=== PATIENT | female | born 1945 | race Caucasian/White ===

== ENCOUNTER → 2019-10-24 10:28 | Outpatient (CLI) | payer OTHER, SELFPAY ==
--- NOTE | ~2019-10-24 | MR_ITS ---
EXAMINATION: MR lumbar spine wo con DATE: 10/24/2019 11:08 INDICATION: Chronic left-sided low back pain. Left hip pain. TECHNIQUE: Magnetic resonance imaging (MRI) of the lumbar spine was performed without intravenous con trast. Sequences included sagittal T2-weighted FSE, sagittal T2-weighted FS FSE, sagittal T1-weighted FSE, and axial T2-weighted FSE. COMPARISON: Lumbar spine MRI 10/09/2014 FINDINGS: There is 5 degrees dextrocurvature of lumbar spine. Vertebral body heights and intervertebr al disc heights are normal. The distal spinal cord signal intensity is normal. The conus medullaris i s at L1. The following disc levels are specifically discussed: L1-L2: The disc does not extend beyond the endplate margin. There is mild right facet joint osteoarth ritis. There is no neural foraminal stenosis. There is no central canal stenosis. L2-L3: The disc does not extend beyond the endplate margin. There is severe bilateral facet joint ost eoarthritis. There is no neural foraminal stenosis. There is no central canal stenosis. L3-L4: The disc is bulging and has an annular fissure. There is severe bilateral facet joint osteoart hritis. There is mild bilateral neural foraminal stenosis. There is mild central canal stenosis. L4-L5: The disc is bulging and has an annular fissure. There is severe bilateral facet joint osteoart hritis. There is mild bilateral neural foraminal stenosis. There is mild central canal stenosis. L5-S1: There is a right central protrusion. There is moderate right and mild left facet joint osteoar thritis. There is mild right neural foraminal stenosis. There is mild central canal stenosis. IMPRESSION: 1. Mild lumbar spondylosis, stable from 10/09/2014. Reviewed, dictated and finalized at location A. [employer]ORATORY MANAGER
== END ==
PROVIDERS: PCP Internal Medicine
DX: M54.42 Lumbago with sciatica, left side (principal); G89.29 Other chronic pain; M47.816 Spondylosis without myelopathy or radiculopathy, lumbar region
CPT/HCPCS: 72148

== ENCOUNTER → 2019-11-22 10:12 | Outpatient (CLI) | payer OTHER, SELFPAY ==
--- NOTE | ~2019-11-22 | DEXA_ITS ---
Bone Density Report Name: Thalia Rod Age: 74 Sex: Female Ethnicity: White Date of : 1945 Indication: postmenopausal osteoporosis; parental hip fracture; height loss; Referring Provider: JOSE, LAMONTE Study: Bone densitometry was performed. Exam Date: November 22, 2019 Accession number: [id number] Bone Density: Region BMD T-score Z-score Classification AP Spine (L1-L4) 0.752 -2.7 -0.4 Osteoporosis Femoral Neck (Left) 0.680 -1.5 0.4 Osteopenia Total Hip (Left) 0.709 -1.9 -0.3 Osteopenia Femoral Neck (Right) 0.665 -1.7 0.3 Osteopenia Total Hip (Right) 0.709 -1.9 -0.3 Osteopenia Total Hip Mean 0.709 -1.9 -0.3 Osteopenia World Health Organization criteria for BMD impression classify patients as: Normal (T-score at or above -1.0), Osteopenia (T-score between -1.0 and -2.5), or Osteoporosis (T-score at or below -2.5). 10-year Fracture Risk: FRAX not reported because: Some T-score for Spine Total or Hip Total or Femoral Neck at or below -2.5 Previous Exams: Region Exam Age BMD T-score BMD Change BMD Change Date g/cm2 vs Baseline vs Previous AP Spine(L1-L4) 11/22/2019 74 0.752 -2.7 0.019 0.003 05/27/2017 72 0.748 -2.7 0.016 -0.011 03/28/2015 69 0.759 -2.6 0.026* -0.007 02/16/2013 67 0.766 -2.6 0.033* -0.012 01/16/2011 65 0.778 -2.4 0.045* 0.045* 12/09/2005 60 0.733 -2.9 Total Hip(Left) 11/22/2019 74 0.709 -1.9 0.028 -0.003 05/27/2017 72 0.712 -1.9 0.031 0.013 03/28/2015 69 0.699 -2.0 0.018 -0.032* 02/16/2013 67 0.732 -1.7 0.051 0.022 01/16/2011 65 0.710 -1.9 0.029 0.029 12/09/2005 60 0.681 -2.1 Total Hip(Right) 11/22/2019 74 0.709 -1.9 0.010 0.036* 05/27/2017 72 0.674 -2.2 -0.025 -0.036* 03/28/2015 69 0.710 -1.9 0.011 0.006 02/16/2013 67 0.704 -2.0 0.005 -0.014 01/16/2011 65 0.718 -1.8 0.019 0.019 12/09/2005 60 0.699 -2.0 *Denotes significance at 95% confidence level, LSC for AP Spine = 0.022 g/cm2, LSC for Total Hip = 0.027 g/cm2 Clinical Information Provided by Patient: Parent has had a hip fracture Has used the following medications: Fosamax (i.e. alendronate), Vitamin D, Calcium Patient maximum height was 64 Menopause Age: 47
== END ==
PROVIDERS: PCP Internal Medicine; Visit Provider Internal Medicine
DX: Z78.0 Asymptomatic menopausal state (principal); M85.852 Other specified disorders of bone density and structure, left thigh; M85.851 Other specified disorders of bone density and structure, right thigh; M81.0 Age-related osteoporosis without current pathological fracture
CPT/HCPCS: 77080

== ENCOUNTER → 2019-11-27 14:47 | Outpatient (CLI) | payer OTHER, SELFPAY ==
--- NOTE | ~2019-11-27 | MM_ITS ---
EXAMINATION: MM screening guilherme BI w andrew HISTORY: Screening mammogram TECHNIQUE: Craniocaudal and mediolateral oblique 3-D tomosynthesis images were obtained and synthetic 2-D images were generated. CAD analysis was submitted and interpreted. COMPARISON: 09/30/2016, 03/28/2015 bilateral digital screening mammogram examinations BREAST PARENCHYMAL COMPOSITION: There are scattered areas of fibroglandular density. FINDINGS: Stable fibroglandular asymmetry. There is no evidence of suspicious mass, calcification, or architectural distortion to suggest malignancy in either breast. There has been no suspicious interv al change. IMPRESSION: 1. No mammographic evidence of malignancy. 2. Recommend routine screening mammography in one year. BI-RADS Category 2: Benign finding(s). Reviewed, dictated and finalized at location A. [employer] SYSTEMS SPECIALIST
== END ==
PROVIDERS: PCP Internal Medicine; Visit Provider Internal Medicine
DX: Z12.31 Encounter for screening mammogram for malignant neoplasm of breast (principal)
CPT/HCPCS: 77063; 77067

== ENCOUNTER → 2020-07-29 08:44 | Outpatient (CLI) | payer OTHER, SELFPAY ==
--- NOTE | ~2020-07-29 | MR_ITS ---
EXAMINATION: MR shoulder RT wo con DATE: 07/29/2020 09:30 INDICATION: Right shoulder pain and weakness TECHNIQUE: Magnetic resonance imaging (MRI) of the right shoulder was performed without intravenous c ontrast. Sequences included axial PD-weighted FS FSE, coronal oblique PD-weighted FS FSE, coronal obl ique T2-weighted FS FSE, sagittal PD-weighted FS FSE, and sagittal T1-weighted SE. COMPARISON: None. FINDINGS: Coracoacromial arch: The acromion undersurface is flat in morphology (type I) with lateral downsloping. Small anterior sub acromial spurs at the insertion of the normal coracoacromial ligament. Moderate acromioclavicular ost eoarthritis. Rotator cuff: There is marked attenuation of the supraspinatus and anterior infraspinatus tendons resulting from pa rtial-thickness articular sided tear with medial retraction of the torn articular side of the tendon to near the level of the rim of the glenoid. No clearly defined full-thickness tear defect appreciate d although given the thinning of the distal tendon could not exclude a small full-thickness component to the tear. The teres minor and subscapularis tendons are normal. There is a concave posterior ceph alad margin to the subscapularis muscle belly which could be related to either medial retraction of p ortions of the muscle belly or atrophy but without significant fatty infiltration. Remaining musculat ure of the shoulder girdle appears relatively preserved. Biceps tendon, glenoid labrum and glenohumeral cartilage: Long head of the biceps tendon is normal. There is degenerative tearing of the 3:00-6:00 position of the anteroinferior glenoid labrum which appears thickened with macerated appearance and with erosive changes at the underlying rim of the glenoid at the 4:00 position. There is partial thickness cartila ge loss at the glenoid with central to cephalad predominance but with smooth chondral surface. Fluid: Physiologic amount of fluid in the glenohumeral joint and biceps tendon sheath. No loose osteochondra l bodies. Small amount of fluid in the subacromial/subdeltoid bursa which could be related to mild bu rsitis or decompression of glenohumeral joint fluid through the full-thickness perforation of the mar kedly thinned supraspinatus and infraspinatus tendons. Bones: No fracture or pathologic marrow replacing process. Mild cystic change at the posterior aspect of the greater tuberosity. IMPRESSION: 1. Moderate to severe partial thickness articular sided tear of the supraspinatus and anterior infras pinatus tendons. No measurable full-thickness tear defect identified however given the marked thinnin g of the tendon, small full-thickness perforations cannot be excluded. 2. Mild glenohumeral osteoarthritis with prominent degenerative tearing of the anteroinferior labrum. 3. Moderate acromioclavicular osteoarthritis. Reviewed, dictated and finalized at location A. KTOP PAVER OPERATOR IMPRESSION: 1. Moderate to severe partial thickness articular sided tear of the supraspinat us and anterior infraspinatus tendons. No measurable full-thickness tear defect identified however given the marked thinning of the tendon, small full-thickne ss perforations cannot be excluded. 2. Mild glenohumeral osteoarthritis with prominent degenerative tearing of the anteroinferior labrum. 3. Moderate acromioclavicular osteoarthritis.
== END ==
PROVIDERS: PCP Internal Medicine; Visit Provider Orthopaedic Surgery
DX: M19.011 Primary osteoarthritis, right shoulder (principal)
CPT/HCPCS: 73221

== ENCOUNTER 2020-10-04 11:00 | Outpatient (CLI) | payer OTHER, SELFPAY ==
[2020-10-04 17:23] LABS: SARS-CoV-2 RNA PCR Negative
== END 2020-10-04 11:01 ==
PROVIDERS: PCP Internal Medicine; Visit Provider Orthopaedic Surgery
DX: Z01.812 Encounter for preprocedural laboratory examination (principal); Z20.822 Contact with and (suspected) exposure to COVID-19
CPT/HCPCS: C9803; U0003

== ENCOUNTER 2020-10-04 12:59 | Outpatient (CLI) | payer OTHER, SELFPAY ==
--- NOTE | ~2020-10-04 | XR_ITS ---
EXAMINATION: XR chest 2V DATE: 10/04/2020 14:27 INDICATION: Hypothyroidism. Preop. TECHNIQUE: Frontal and lateral views of the chest were obtained. COMPARISON: Chest 2 views 10/02/2014 FINDINGS: There is no pneumonia, pleural effusion, or pneumothorax. Cardiomegaly is noted. IMPRESSION: 1. Cardiomegaly. Reviewed, dictated and finalized at location A. [employer] TICKET SELLING IMPRESSION: 1. Cardiomegaly.
== END 2020-10-04 13:00 | disposition home or self-care (01) ==
LOC: ANHSURGERY 13:01
PROVIDERS: PCP Internal Medicine; Visit Provider Orthopaedic Surgery
DX: S92.309A Fracture of unspecified metatarsal bone(s), unspecified foot, initial encounter for closed fracture (principal); Z01.818 Encounter for other preprocedural examination; I51.7 Cardiomegaly
CPT/HCPCS: 36415; 71046; 82306

== ENCOUNTER 2020-10-07 01:46 | Day surgery (SDC) | payer OTHER, SELFPAY ==
--- NOTE | 2020-10-04 11:13 | PM.IMHP ---
H&P: HPI History of Present Illness Date/Time: 10/04/20 11:13 Chief Complaint: Right 5th metatarsal Og fracture with prodrome all symptoms Narrative: Thalia Rod is a 75 year old female [facility] Family History Family History (Updated 05/24/14 @ 07:13 by DOCTOR UNKNOWN) Father Patient's father is Mother Family history of heart disease in male family member before age 55 Sibling Family history of heart disease in male family member before age 55 Social History Social History Smoking status: Never smoker Alcohol intake: never Meds Home Medications and Allergies Allergies Allergy/AdvReac Type Severity Reaction Status Date / Time Unable to Assess Allergy Mild Unverified 06/13/09 11:59 Sulfa (Sulfonamide Allergy Unknown Verified 10/07/15 14:08 Antibiotics) Assessment and Plan Additional Plan patient is a 75-year-old female who has had several months of intermittent pain in lateral forefoot of the right foot and then on 10/02/2020 she was simply descending some steps when she heard a pop in the lateral right midfoot and then a surge of severe pain. She had x-rays obtained which demonstrate completion of a chronic appearing Og fracture that was a stress fracture involving the lateral 1/2 of the proximal 5th metatarsal shaft of the right foot transversely. She presents for screw stabilization of this fracture. Her past medical history is significant for using acting ill off and on for the last 10 years for osteoporosis. She will be stopping that at this time. A bone growth stimulator will be ordered for her. She will also have her naproxen and Mobic. . 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 Her other medications include levothyroxine seen levo cetirizine clobetasol cream Viola stasis eyedrops. History of osteoporosis. History of chronic large rotator cuff tear right shoulder deemed irrepairable. She has no history of heart or lung disease. She is a lifelong nonsmoker. History of allergy to sulfa causing rash. On exam today she is a pleasant female in no acute distress. She is alert and oriented. She rates her pain at 5/10. She is 5 ft 1 in in height 112 lb. She has a 2+ dorsalis pedis pulse palpable in the right foot. She does report some decrease in sensation of her toes bilaterally which is been present for years. The skin is intact in the right foot. She has severe tenderness over the mid 5th metatarsal shaft the right foot and no where else in the foot or ankle. Heart and lung auscultation will be documented on day of surgery. She is being sent for EKG and standard pre-surgical laboratory work which is not available yet. Patient has a stress fracture right 5th metatarsal shaft with 3 months of prodrome will symptoms followed by atraumatic completion of the fracture. Screw stabilization has been recommended and we will plan to use the Brian as this Caitlyn's fracture screw set. Risks of surgery were discussed with her D in detail she understands wish to proceed.
[2020-10-04 13:44] VITALS: BP 147/74; PULSE 80; RESP 16; TEMP 36.9; O2SAT 97
[2020-10-07] VITALS (8 sets, daily range): BP systolic 131–154; BP diastolic 48–74; PULSE 62–81; RESP 8–20; TEMP 36.6–36.8; O2SAT 98–100
--- NOTE | ~2020-10-07 | XR_ITS ---
EXAMINATION: XR surgery orthopedic EXAM DATE: 10/07/2020 09:20 INDICATION: ORIF right foot. TECHNIQUE: Fluoroscopy used during XR surgery orthopedic performed by Dr. Heladio Fox MD. The DAP for this procedure was 0.09 mGym2. FINDINGS: There is a surgical screw bridging a right 5th metatarsal shaft fracture proximally, Og type fracture. Hardware, bone fragment are in expected position. Correlate with procedure note. IMPRESSION: Fluoroscopy used during right Og fracture ORIF. Reviewed, dictated and finalized at location B. [employer] MARKETING
[2020-10-07] MEDS: ACETAMINOPHEN 500 MG TABLET 1000 MG PO (06:25)
[2020-10-07] MEDS: LACTATED RINGERS 1,000 ML 30 ML IV CONT ×3 (06:45→09:28)
[2020-10-07] MEDS: KETOROLAC 15 MG/ML VIAL (*BKC) IV PUSH (06:52)
--- NOTE | 2020-10-07 07:22 | WPDHPUPDATE1 ---
History and Physical Update Update Date/Time: 10/07/20 07:22 History and Physical has been reviewed, including an updated exam of the patient. There are NO changes in the patient's condition. Risks, benefits, and alternatives have been discussed and questions answered. Patient agrees to proceed with procedure.
--- NOTE | 2020-10-07 07:32 | P.PNAN_ITS ---
Anes - Initial Pre Proc Eval Procedure: Operation Date: 10/07/20 07:30 Proposed Procedures p Open Reduction Internal Fixation Right Fifth Metatarsal Love Fracture with Cannulated Screw - Heladio Fox MD Date/Time: 10/07/20 07:32 Surgeon: Heladio Fox MD Pre Op Diagnosis: right 5th metarsal love fx Patient Data Age: 75 Gender: F Height: 5 ft 3 in Weight: 49.7 kg Last Vital Signs Temp 36.8 C 10/07/20 06:17 Pulse 81 10/07/20 06:17 Resp 20 10/07/20 06:17 BP 148/70 H 10/07/20 06:17 Pulse Ox 100 10/07/20 06:17 Allergies Allergy/AdvReac Type Severity Reaction Status Date / Time Sulfa (Sulfonamide AdvReac Mild Rash Verified 10/07/20 06:22 Antibiotics) Home Medications Medication Instructions Recorded Confirmed Type Tylenol Arthritis 650 mg PO HS 10/04/20 10/07/20 History acetaminophen [Tylenol Extra 500 mg PO QAM PRN 10/04/20 10/07/20 History Strength] calcium carbonate [Caltrate 600] 600 mg PO DAILY 10/04/20 10/04/20 History cyclosporine [Restasis] 1 drp OPHTHALMIC (EYE) Q12H 10/04/20 10/04/20 History hydroxychloroquine 200 mg PO QAM 10/04/20 10/07/20 History levocetirizine 5 mg PO HS 10/04/20 10/07/20 History levothyroxine 50 mcg PO QAM 10/04/20 10/07/20 History meloxicam 15 mg PO DAILY 10/04/20 10/07/20 History multivitamin [Daily Multiple] 1 tablet PO DAILY 10/04/20 10/07/20 History naproxen 500 mg PO BID 10/04/20 10/07/20 History Patient hx anesthesia problems: none Family hx anesthesia problems: none PMFSH Past Medical History Medical History (Updated 10/07/20 @ 07:33 by Mitch Lara MD) Hypothyroidism Surgical History Surgical History (Updated 10/07/20 @ 07:33 by Mitch Lara MD) Hx of tonsillectomy Family History Family History Father Patient's father is Mother Family history of heart disease in male family member before age 55 Sibling Family history of heart disease in male family member before age 55 Social History Social History Smoking status: Never smoker Alcohol intake: never Substance use: never Living arrangements: with family Additional living arrangements comments: Spiritual care concerns: No Anes - Eval Final PreProcedure Day of Procedure 10/07/20 07:32 Patient weight: normal Heart: regular rate and rhythm Lungs: clear to auscultation Airway: Mallampati scale class II Neurological: alert and oriented Last oral intake: >/= 8 hours ASA classification: II Emergent: no Anesthetic plan: proceed Anesthesia type and monitoring: general LMA and standard monitoring Informed Consent: The patient's anesthetic plan of GA with LMA and propofol infusion and its attendant risks and benefits were discussed at length by me and Sharmin Gonzalez with the patient. Questions were solicited and answers provided to t he satisfaction of the patient.
[2020-10-07] MEDS: ceFAZolin 2 GM/D5W 50 ML 2 GM/50 ML BAG IVPB (07:40)
[2020-10-07] MEDS: BUPIVACAINE HCL 0.5% PF 30 ML VIAL INFILTRATE (09:03)
--- NOTE | 2020-10-07 09:54 | P.OP_ITS ---
Procedure Note - Detailed Date of procedure: 10/07/20 Pre-op diagnosis: right 5th metarsal love fx Atypical right 5th metatarsal Love stress fracture. Osteoporosis. Post-op diagnosis: same Procedure performed: Open reduction internal fixation with ASNIS 6.0 cannulated screw with washer right 5th metatarsal fracture Description of procedure: Patient was brought to the operating room and general anesthesia was administered. She received weight based vancomycin 2 g of Ancef preoperatively. The right foot was scrubbed with the Ramses prep cloth and then prepped with ChloraPrep and draped usual fashion. Tourniquet was not used during the procedure. A 1/2 cm longitudinal incision was made proximal to the 5th metatarsal and a guide lucia inserted at the appropriate alignment to center it within the intramedullary canal of the proximal 2/3 of the the metatarsal. I was able to inserted by hand as her osteoporosis was significant period a 5.0 mm x 42 mm solid screw proved a struggle to get the entrance hole and we decided to use the cannulated version and this was inserted and I noted that the head of the 5 mm screw countersunk into the 5th metatarsal styloid quite easily the screw bottoming out the anterior cortex distally. I felt we could go up to a size 6 and we inserted a 6 mm by 40 mm screw cannulated with a washer and this filled the canal nicely but I thought it ended up being a little bit short due to the fact that the washer prevented any countersinking and we removed this and went up to a size 44 which reached the point where the canal was starting to narrowing obtained excellent purchase and excellent interfragmentary compression at the fracture site with a washer in place. The wound was irrigated and closed with 4 nylon suture and a soft bulky dressing applied a posterior splint a pplied. She was transferred postop recovery room in stable condition. No known complications. Implants: ASNIS cannulated 6 mm Love fracture screw and washer Anesthesia: GLMA Surgeon: Heladio Fox MD Pile Driver Operator: Clint Louise Estimated blood loss (mL): 10 Tourniquet time (min): 0 Drains: No Packing: No Pathology: none sent Complications: No immediate complications Condition: stable Disposition: PACU
--- NOTE | 2020-10-07 09:55 | SUR.PHASEI ---
0972; NAMITA WEST CHANGED IVF BAG 2 WHICH HAD 500 LEFT TO COUNT. WASTED. SHE HUNG A NEW BAG OF LR.
--- NOTE | 2020-10-07 10:12 | SUR.PHASEI ---
PT AWAKE AND ALERT. STATES MILD PAIN TO FOOT. DOES NOT WANT ANY PAIN MEDICINE AT THIS TIME.
--- NOTE | 2020-10-07 11:40 | SUR.OPER ---
Late Entry/right foot screw 5th metatarsal [place] 6.0x 44mm cannulated screw ([id number]), washer 6.0x10mm ([id number])
== END 2020-10-07 11:21 | disposition home or self-care (01) ==
PROVIDERS: PCP Internal Medicine; Visit Provider Orthopaedic Surgery
PROC: (CPT 28485; principal; 2020-10-07 07:30)
DX: M84.374A Stress fracture, right foot, initial encounter for fracture (principal); M81.0 Age-related osteoporosis without current pathological fracture; E03.9 Hypothyroidism, unspecified
CPT/HCPCS: 28485; 36415; 71046; 82306; A9270; C9803; J0690; J1100; J1200; J1885; J2405; J2704; J3010; J3370; J7120; U0003

== ENCOUNTER 2021-02-19 14:15 | Outpatient (RCR) | payer OTHER, SELFPAY ==
--- NOTE | 2021-02-07 16:29 | PTOPEVAL ---
PHYSICAL THERAPY EVALUATION AND PLAN OF CARE Thank you for referring Thalia Rod to [facility].? The patient is scheduled to be seen for therapy?2x/week for 4weeks. Please review, sign, date and return this plan of care DIVINA. I agree with and certify that the following plan of care is medically necessary. Referring Physician Date Attending Provider: Heladio Fox MD Evaluation Outpatient Past Medical History Musculoskeletal History Hx Fractures Yes: FRACTURE IN FOOT IN PAST Hx Osteoporosis Yes Hx Other Musculoskeletal Disorders Yes: RT 5TH METATARSAL DESOUZA FRACTURE, RT SHOULDER ROTATOR TEAR CURRENTLY Endocrine History Hx Hypothyroidism Yes HEENT History Hx Tonsillectomy Yes: CHILD Hx Other HEENT Disorders Yes: SJOGREN'S- RESTASIS Integumentary History Hx Other Skin Disorders Yes: SJOGREN'S RASH PERIODICALLY Reproductive History Hx Post Menopausal Yes Diagnosis right 5th metatarsal fracture s/p ORIF Onset 09/2020 Subjective Information Thalia is here today 5 months s Query Text:As Reported By Patient/ /p right 5th metatarsal fx Family with ORIF. She was in a stabilizing boot since September 2020 and on 01/27/21 she was able to switch to a hard soled shoe. She was using a wheelchair until that time also. She is now using a rollator walker. Reports that she has a burning across the top of the foot, but not a lot of pain. States that she tried to do some walking without the walker and home and got really tired. Self Report Pain Assessment Right Foot/Feet Reported Pain Level 1 Pain Description Burning Pain Frequency Chronic Lowest Pain Intensity 0 Other Pain Aggravating Factors possibly sheets touching the foot and possibly the sheets bending the foot. Pain Behaviors None Interventions Used Interventions Used By Clinicians Exercise Lower Extremity Range of Motion General Lower Extremity Range of Motion Reason Not Measured WFL/Left,WFL/Right Gross Lower Extremity Range of Motion precautions to keep toes Comments neutral (no flexion or extension of toes); precaution
--- NOTE | 2021-02-10 11:43 | PCPTNOTE ---
Patient did not show up for scheduled appointment this date.
--- NOTE | 2021-02-28 15:23 | PCPTNOTE ---
Patient did not show up for scheduled appointment this date. Called and left voicemail about missed appointment, reminded Pt of upcoming appointment on 03/04/2021 @ 15:00.
--- NOTE | 2021-03-03 08:16 | PCPTNOTE ---
PHYSICAL THERAPY DISCHARGE NOTE Attending Provider: Heladio Fox MD Patient:Thalia Rdo Date of :1945 Thalia called to cancel her last appointments. I spoke with her about her current condition and she states that she saw the doctor and she is allowed to walk without restriction and he instructed her to continue her exercises at home. We will discharge her from out care at this time. We would be happy to work with her in the future if needed. Thank you for referring Thalia to [facility]. Please review, sign, date and return this discharge summary DIVINA. I have been updated about the patient's current status and I agree with discharge from the above service at this time. Referring Physician Date
== END 2021-03-03 10:19 | disposition home or self-care (01) ==
LOC: ANHPT 14:15
PROVIDERS: PCP Internal Medicine; Visit Provider Orthopaedic Surgery
DX: Z47.89 Encounter for other orthopedic aftercare (principal)
CPT/HCPCS: 97110; 97161

== ENCOUNTER 2022-02-17 13:43 | Outpatient (CLI) | payer OTHER, SELFPAY ==
--- NOTE | 2022-02-17 14:37 | ECG_ITS ---
Measurements Intervals [place] Rate: 69 P: 77 GA: 150 QRS: -1 QRSD: 94 T: 19 QT: 377 QTc: 405 Interpretive Statements SINUS RHYTHM BASELINE ARTIFACT- I, II, III, AVR, AVL, AVF NORMAL ECG Electronically Signed On 02-17-2022 17:22:15 CDT by Ruiz Browning D.O.
[2022-02-17 15:09] LABS: Basophils Percent Auto 0.6 % (0.2-1.2); Eosinophils Absolute Auto 0.2 K/mm3 (0-0.3); Eosinophils Percent Auto 2.8 % (0-4.4); Hematocrit 36.1 % (37.0-47.0); Hemoglobin 11.9 g/dL (12.0-15.0); Immature Granulocyte Absolute 0.02 K/mm3 (0.00-0.031); Immature Granulocyte Percent A 0.3 % (0-0.5); Lymphocytes Absolute Auto 1.79 K/mm3 (0.9-3.2); Lymphocytes Percent Auto 27.4 % (18.3-44.2); Mean Corpuscular Hemoglobin 31.2 pg (26-34); Mean Corpuscular Volume 94.8 fl (80-100); Mean Platelet Volume 10.9 fl (7.4-10.4); Monocytes Absolute Auto 0.5 K/mm3 (0.1-0.6); Neutrophils Percent Auto 60.9 % (45.5-73.1); Platelet Count Result 262 k/mm3 (150-375); Red Blood Count 3.81 M/mm3 (4.2-5.4); Red Cell Distribution Width 12.7 % (11.5-14.5); White Blood Count 6.5 K/mm3 (4.5-10.0)
[2022-02-17 15:18] LABS: Albumin Level 4.5 g/dL (3.5-5.1); Anion Gap 8 mmol/L (8-16); Blood Urea Nitrogen 20 mg/dL (7-17); Calcium 9.3 mg/dL (8.4-10.2); Carbon Dioxide 27 mmol/L (22-30); Chloride 101 mmol/L (98-107); Estimated Glomerular Filt Rate > 60; Glucose 98 mg/dL (65-110); Sodium 136 mmol/L (137-145)
[2022-02-17 15:22] LABS: Urine Cotinine NEGATIVE
[2022-02-17 15:24] LABS: Hemoglobin A1C 5.2 % (<5.7)
== END 2022-02-17 13:44 | disposition home or self-care (01) ==
LOC: ANHSURGERY 13:47
PROVIDERS: PCP Internal Medicine; Visit Provider Orthopaedic Surgery
DX: Z01.818 Encounter for other preprocedural examination (principal); M17.11 Unilateral primary osteoarthritis, right knee
CPT/HCPCS: 80048; 80307; 82040; 83036; 85025; 87070; 93005

== ENCOUNTER 2022-03-05 15:47 | Observation (INO) | payer OTHER, SELFPAY ==
--- NOTE | 2022-02-17 13:46 | PC.NURSE ---
Report to the Outpatient Waiting Room, entrance under the green pavilion located off [facility], at time _1000_ on date _03/04/22_. OR Time: _1200_. - You and your visitor will be asked a series of questions to screen for COVID 19 for your protection. - Only one visitor is allowed at this time. - The patient visitor is requested to leave or wait in car when not with patient. - A mask is required within the hospital. VISITING HOURS 10AM-8PM Patients may have clear liquids (water, carbonated beverages, clear teas, apple juice) until 3 hours prior to surgery (0900 AM) with a maximum of 20 ounces. - No food from midnight until time of surgery Take the following medications with a SIP of water the morning of surgery: _LEVOTHYROXINE, RESTASIS, TYLENOL IF NEEDED_ Medications to discontinue per DR. SOLOMON - (PER PT) - NAPROXEN AND VITAMINS & SUPPLEMENTS 1 WEEK PRIOR TO SURGERY, Date to take last dose 02/24/22_ Please no make-up, nail liberian, hairspray, perfume, deodorant, or body powder the day of surgery. No jewelry (including any body piercings) or valuables the day of surgery, leave them at home. Please take a shower or bath the night before, or the morning of, surgery with an antibacterial soap. Wear comfortable, loose fitting clothing. - Jewelry must be removed prior to entering the operating room. Rings and piercings that are not removed may be cut off. - The hospital will not accept responsibility for valuables. - Please leave all valuables, including medications, at home the day of surgery. If you are going home after surgery, a licensed stacker driver must drive you home. - NO public transportation without another adult. - We recommend that an adult stay with you for 24 hours following discharge. - We also recommend that you do not drive, make important decision, drink alcoholic beverages, or take any drugs that were not prescribed by your health care provider for at least 24 hours after your discharge time. Follow any additional instructions given to you from DR. SOLOMON -- TOTAL JOINT CLASS 02/25/22 @ [address] [place] [address], USE MAIN ENTRANCE, LOWER LEVEL - EDUCATION DEPT. If you or anyone in your household have experienced Covid symptoms in the past week, please notify your surgeon or the nurse liaison at the phone number below for possible testing. Instructions given to ____PT and asked if any additional questions and then verbalized understanding. Patient advised to call surgeon office or pre surgery nurse liaison [phone] if any additional questions.
[2022-02-17 14:11] VITALS: BP 164/68; PULSE 78; RESP 18; TEMP 36.5; O2SAT 100; BMI 20.7
--- NOTE | 2022-03-03 13:52 | WPDANESEPPF ---
Anes - Initial Pre Proc Eval Procedure: Operation Date: 03/04/22 12:00 Proposed Procedures p Right Total Knee Arthroplasty - Heladio Fox MD Date/Time: 03/03/22 13:52 Surgeon: Heladio Fox MD Pre Op Diagnosis: OA right knee (Grade III Valgus) Patient Data Age: 76 Gender: F Height: 1.56 m Weight: 50.5 kg Last Vital Signs Temp 36.5 C 02/17/22 14:11 Pulse 78 02/17/22 14:11 Resp 18 02/17/22 14:11 BP 164/68 H 02/17/22 14:11 Pulse Ox 100 02/17/22 14:11 O2 Del Method Room Air 02/17/22 14:11 Allergies Allergy/AdvReac Type Severity Reaction Status Date / Time Sulfa (Sulfonamide AdvReac Mild Rash Verified 02/17/22 14:01 Antibiotics) Home Medications Medication Instructions Recorded Confirmed Type calcium carbonate 600 mg calcium 600 mg PO DAILY 10/04/20 02/17/22 History (1,500 mg) tablet cyclosporine 0.05 % eye drops in a 1 drp ophthalmic (eye) Q12H 10/04/20 02/17/22 History dropperette (Restasis) hydroxychloroquine 200 mg tablet 200 mg PO QAM 10/04/20 02/17/22 History levocetirizine 5 mg tablet 5 mg PO HS 10/04/20 02/17/22 History levothyroxine 50 mcg tablet 50 mcg PO QAM 10/04/20 02/17/22 History multivitamin (Daily Multiple 1 tablet PO DAILY 10/04/20 02/17/22 History tablet) acetaminophen 325 mg capsule 650 mg PO Q6H PRN pain #90 caps 10/07/20 02/17/22 Rx sennosides 8.6 mg-docusate sodium 2 tab-cap PO BID PRN constipation 10/07/20 02/17/22 Rx 50 mg capsule (Senna Plus) #120 caps ascorbic acid (vitamin C) 500 mg 500 mg PO DAILY 02/17/22 02/17/22 History tablet (Vitamin C) cholecalciferol (vitamin D3) 1,250 2,500 mcg PO DAILY 02/17/22 02/17/22 History mcg (50,000 unit) capsule coenzyme Q10 100 mg capsule 100 mg PO DAILY 02/17/22 02/17/22 History (CoQ-10) glucosamine sulfate 500 mg tablet 1,500 mg PO DAILY 02/17/22 02/17/22 History (Glucosamine) lutein 6 mg tablet 6 mg PO DAILY 02/17/22 02/17/22 History naproxen 500 mg tablet 500 mg PO BID PRN Pain 02/17/22 02/17/22 History vitamin B complex 1 tablet PO DAILY 02/17/22 02/17/22 History vitamin E 400 unit capsule 400 unit PO DAILY 02/17/22 02/17/22 History ECG: Date of Service: 02/17/22 Procedure(s): CA 12 lead EKG Accession Number(s): [id number] cc: ~ ? Measurements Intervals? [place]? Rate: ? 69 ? P:? 77 CO: ? 150? QRS:? -1 QRSD: ? 94 ? T:? 19 QT: ? 377? QTc:? 405? Interpretive Statements SINUS RHYTHM BASELINE ARTIFACT- I, II, III, AVR, AVL, AVF NORMAL ECG Electronically Signed On 02-17-2022 17:22:15 CDT by Ruiz Browning D.O. Patient hx anesthesia problems: none Family hx anesthesia problems: none Results Review: All pre-operative results and documents have been reviewed as part of the pre-operative evaluation. [facility] Past Medical History Medical History Acquired hypothyroidism Elevated LDL cholesterol level Hypothyroidism Lumbar radiculopathy, right Lupus erythematosus overlap syndrome Osteoporosis Seronegative rheumatoid arthritis Sjogrens syndrome Surgical History Surgical History Hx of tonsillectomy Family History Family History Father Patient's father is Mother Family history of heart disease in male family member before age 55 Sibling Family history of heart disease in male family member before age 55 Social History Social History Smoking status: Never smoker Second hand tobacco smoke exposure: No Additional smoking assessment comments: PT DENIES ALL FORMS
[2022-03-04] VITALS (14 sets, daily range): BP systolic 119–170; BP diastolic 57–89; PULSE 72–99; RESP 12–25; TEMP 36.4–36.9; O2SAT 97–100
--- NOTE | 2022-03-04 08:29 | PM.IMHP ---
H&P: HPI History of Present Illness Date/Time: 03/04/22 08:29 Chief Complaint: Right knee DJD Narrative: 76-year-old female patient Dr. Churchill who presents today for right total knee arthroplasty. She has been having pain in this knee for years. She has severe lateral compartment osteoarthritis with a rather severe valgus deformity. She has been on anti-inflammatories without improvement of her symptoms. She has symptoms and pain on a daily basis. She is fairly miserable. She feels this point she is ready to proceed with total knee arthroplasty rather continue nonsurgical treatment. [facility] Past Medical History Medical History Acquired hypothyroidism Elevated LDL cholesterol level Hypothyroidism Lumbar radiculopathy, right Lupus erythematosus overlap syndrome Osteoporosis Seronegative rheumatoid arthritis Sjogrens syndrome Surgical History Surgical History Hx of tonsillectomy Family History Family History Father Patient's father is Mother Family history of heart disease in male family member before age 55 Sibling Family history of heart disease in male family member before age 55 Social History Social History Smoking status: Never smoker Second hand tobacco smoke exposure: No Additional smoking assessment comments: PT DENIES ALL FORMS OF TOBACCO USE Alcohol intake: never Substance use: never Substance use type: does not use Living arrangements: with family Additional living arrangements comments: Spiritual care concerns: No Meds Home Medications and Allergies Home Medications Medication Instructions Recorded Confirmed Type calcium carbonate 600 mg calcium 600 mg PO DAILY 10/04/20 03/04/22 History (1,500 mg) tablet cyclosporine 0.05 % eye drops in a 1 drp ophthalmic (eye) Q12H 10/04/20 03/04/22 History dropperette (Restasis) hydroxychloroquine 200 mg tablet 200 mg PO QAM 10/04/20 03/04/22 History levocetirizine 5 mg tablet 5 mg PO HS 10/04/20 03/04/22 History levothyroxine 50 mcg tablet 50 mcg PO QAM 10/04/20 03/04/22 History multivitamin (Daily Multiple 1 tablet PO DAILY 10/04/20 03/04/22 History tablet) acetaminophen 325 mg capsule 650 mg PO Q6H PRN pain #90 caps 10/07/20 03/04/22 Rx sennosides 8.6 mg-docusate sodium 2 tab-cap PO BID PRN constipation 10/07/20 02/17/22 Rx 50 mg capsule (Senna Plus) #120 caps ascorbic acid (vitamin C) 500 mg 500 mg PO DAILY 02/17/22 03/04/22 History tablet (Vitamin C) cholecalciferol (vitamin D3) 1,250 2,500 mcg PO DAILY 02/17/22 03/04/22 History mcg (50,000 unit) capsule coenzyme Q10 100 mg capsule 100 mg PO DAILY 02/17/22 03/04/22 History (CoQ-10) glucosamine sulfate 500 mg tablet 1,500 mg PO DAILY 02/17/22 03/04/22 History (Glucosamine) lutein 6 mg tablet 6 mg PO DAILY 02/17/22 03/04/22 History naproxen 500 mg tablet 500 mg PO BID PRN Pain 02/17/22 03/04/22 History vitamin B complex 1 tablet PO DAILY 02/17/22 03/04/22 History vitamin E 400 unit capsule 400 unit PO DAILY 02/17/22 03/04/22 History Allergies Allergy/AdvReac Type Severity Reaction Status Date / Time Sulfa (Sulfonamide AdvReac Mild Rash Verified 03/04/22 11:37 Antibiotics) Exam Narrative: 76-year-old female alert pleasant. She is 5 ft 1 and 112 lb. Right knee range of motion is from 0-125 degrees. She has an obvious valgus alignment. Positive Mandy's. She does have laxity of the MCL with valgus stress but there is an endpoint. Has normal muscle strength in all muscle groups right lower extremity. She does have a 2+ dorsalis pedis absent posterior artery pulse. There is no edema in lower extremities. Resp: Auscultation: clear to auscultation bilaterally Cardio: Rate: regular rate Rhythm: regular rh
[2022-03-04] MEDS: ACETAMINOPHEN 500 MG TABLET 1000 MG PO ×2 (10:41→18:06)
[2022-03-04] MEDS: LACTATED RINGERS 1,000 ML 30 ML IV CONT ×3 (10:45→16:06)
[2022-03-04] MEDS: TRANEXAMIC ACID 1,000MG/ISO100 1,000 MG/100 ML BAG 200 MG IVPB (11:35)
--- NOTE | 2022-03-04 11:51 | WPDHPUPDATE1 ---
History and Physical Update Update Date/Time: 03/04/22 11:51 History and Physical has been reviewed, including an updated exam of the patient. There are NO changes in the patient's condition. Risks, benefits, and alternatives have been discussed and questions answered. Patient agrees to proceed with procedure. Pt refuses to remove ring. Discussed possible need to cut them off If fingers swell.
--- NOTE | 2022-03-04 12:00 | SUR.PREOP ---
1150-DR. SOLOMON AWARE PT REFUSES TO REMOVE JEWELRY-OKAY TO PROCEED, WILL OBTAIN WAIVER.
[2022-03-04] MEDS: ceFAZolin 2 GM/D5W 50 ML 2 GM/50 ML BAG IVPB (12:04)
[2022-03-04] MEDS: ceFAZolin SODIUM 1 GM VIAL 3 GM (12:48)
[2022-03-04] MEDS: GENTAMICIN BONE CEMENT REFOBACIN 1 EACH TOPICAL (12:57)
[2022-03-04] MEDS: TRANEXAMIC ACID 1,000 MG/10 ML AMPUL 1000 MG IV PUSH (14:41)
[2022-03-04] MEDS: ceFAZolin SODIUM 1 GM VIAL IV PUSH (14:43)
[2022-03-04] MEDS: fentaNYL CITRATE INJ (*CRX) 100 MCG/2 ML VIAL 25 MCG IV PUSH ×4 (15:53→16:05)
[2022-03-04] MEDS: HYDROmorphone HCL INJ (*CRX) 1 MG/ML SYR 0.25 MG IV PUSH ×6 (16:05→16:36)
--- NOTE | 2022-03-04 16:06 | W.PM.PROC2 ---
Procedure Note - Detailed Date of Procedure 03/04/22 Pre-op Diagnosis OA right knee (Grade III Valgus) Post-op Diagnosis Same Procedure Performed Right total knee arthroplasty with constrained implants Surgeon Heladio Fox MD Hand Ii Thermal Cutter Won Dubon Description of Procedure Patient was brought to the operating room and general anesthesia was administered. The right knee was prepped draped usual fashion. She received 2 g Ancef weight based vancomycin preoperatively and 1 g of tranexamic acid. Under anesthesia the knee appears to come out straight but there is prominent valgus deformity. The limb was exsanguinated and tourniquet elevated to 250 mmHg. A 7 in longitudinal incision was made and a vastus medialis splitting approach utilized splitting the vastus medialis at the level of the superior pole of patella. There was moderately high-grade cartilage loss throughout the patella and hypertrophic osteophytes which were trimmed down. I was hoping we could treat this with non resurfacing as the patella measured 20 mm in thickness and she has a history of osteoporosis. A guide lucia was inserted down the femoral canal after aspiration of canal contents using the 5 degree valgus cutting bushing 10 mm of bone removed the distal femur. This removed about 5 mm laterally. Next the tibial plateau was cut. Our initial cut left a little bit of cartilage on the posterior aspect of medial tibial plateau and was not quite to the base of the lateral plateau wear defect so an additional 2 mm of bone removed this time. This gave adequate resection. This was made perpendicular to the axis of the tibia. Meniscal remnants were excised. We found that she had a flexion gap at 90? 13 mm laterally 10 mm medially. We knew that she had some relative medial capsular insufficiency due to her widening of medial clear space on preoperative x-ray. We set the femoral sizing guide to 5? of external rotation posterior referencing pinholes were placed. The size 60 vanguard cutting block was applied AP and chamfer cuts made. This fit line to line anterior to posterior and medial to lateral. We placed the 10 mm CR trial and was too tight in extension. This gave me the opportunity assessed the slope the tibial cut optimally and I thought we were in a little bit reverse slope. Her ankles were very thin and we had made some adjustment for this at the base of the tibial cutting guide. I reassessed this and reapplied tibial cutting guide determined that there was a little bit of skive on the lateral side that we were not cut to the depth at the sought tended to skive off the sclerotic bone posterolaterally and we carefully recut the tibia at this time correcting the slope to be truly perpendicular. 2 mm of bone removed off the distal femur. Chamfer cuts were revisited posterior femoral condylar bone was removed large posterior osteophyte laterally removed and several loose bodies were removed from the posterior capsular recess of the knee. The tibia was punched to a size 63 placed at proper rotation and punched with the 80 mm finned stem. The 360 degree femoral trial was applied the femur and the a Soft Tissue Regeneration Reamer was used and we reamed to 16 mm with a 40 mm cemented stem 14 diameter and the intercondylar box cut for the SSK housing. We trialed with the SSK femur 10 mm with the SSK post on the poly trial. There was full extension and 90? about 3 or 4 mm of anterior drawer and gravity flexion to 135 with no anterior drawer test about 120. There was appropriate stability throughout. Patellar tracking was assessed. The tourniquet was down at this time at 90 minutes and patellar tracked fine but the cough and anterior aspect of intercondylar box going from the flexion 40 extension and it was clear that the patella should be resurfaced. We cut this down to 14 mm and I found that the bone quality in the patella was actually very good. This was sized to a 31 and the 31 thin component trial applied
--- NOTE | 2022-03-04 17:45 | ADMGEN ---
This patient, Thalia Rod, was admitted to Medical Room 247-. Patient/family oriented to hospital policies and general routines including ID bracelet, bed and alarms, visiting hours, pain management, procedures, bathroom and other care routines, personal items, smoking policy, room service/diet, and visiting hours. Information on how to activate the Rapid Response Team has been discussed. Patient/Family are encouraged to report perceived risks to care and to ask questions if they do not understand what they are told or what they should do.
[2022-03-04] MEDS: SODIUM CHLORIDE 0.9% IV 1,000 ML 125 ML IV CONT (17:50)
[2022-03-04] MEDS: MORPHINE SULFATE (*CRX) 2 MG/ML INJ IV PUSH ×2 (18:05→21:56)
[2022-03-04] MEDS: SENNA/DOCUSATE SODIUM TABLET 2 TAB PO (18:06)
[2022-03-04] MEDS: ONDANSETRON INJ 4 MG/2 ML VIAL IV PUSH (20:15)
[2022-03-04] MEDS: cycloSPORINE 0.4 ML OPHTH SOLUTION 1 DROP EACH EYE (20:18)
[2022-03-04] MEDS: oxyCODONE HCL (*CRX) 5 MG TAB IR PO (20:18)
[2022-03-04] MEDS: LORATADINE 10 MG TABLET PO (20:18)
[2022-03-04] MEDS: VANCOMYCIN HCL 500 MG in DEXTROSE 5% 100 ML 100 MG IVPB (22:01)
[2022-03-05] VITALS (8 sets, daily range): BP systolic 127–152; BP diastolic 53–88; PULSE 77–96; RESP 14–20; TEMP 36.5–37; O2SAT 96–100
--- NOTE | ~2022-03-05 | XR_ITS ---
EXAMINATION: XR knee RT 2V DATE: 03/04/2022 16:06 CDT INDICATION: Right total knee arthroplasty TECHNIQUE: 2 views right knee FINDINGS: There is a right total knee arthroplasty in expected position. Subcutaneous gas with fluid and air in the joint are consistent with recent surgery. No evidence of periprosthetic fracture. IMPRESSION: 1. Recent right total knee arthroplasty. Reviewed, dictated and finalized at location B.
[2022-03-05] MEDS: oxyCODONE HCL (*CRX) 5 MG TAB IR PO ×6 (00:52→20:10)
[2022-03-05] MEDS: ACETAMINOPHEN 500 MG TABLET 1000 MG PO ×4 (00:52→17:06)
[2022-03-05] MEDS: LEVOTHYROXINE SODIUM 50 MCG TABLET PO (05:33)
[2022-03-05] MEDS: ONDANSETRON INJ 4 MG/2 ML VIAL IV PUSH ×2 (05:35→12:02)
[2022-03-05 05:43] LABS: Basophils Percent Auto 0.1 % (0.2-1.2); Eosinophils Percent Auto 0.1 % (0-4.4); Hemoglobin 8.7 g/dL (12.0-15.0); Immature Granulocyte Absolute 0.03 K/mm3 (0.00-0.031); Immature Granulocyte Percent A 0.3 % (0-0.5); Lymphocytes Absolute Auto 1.18 K/mm3 (0.9-3.2); Lymphocytes Percent Auto 11.5 % (18.3-44.2); Mean Corpuscular HGB Conc 33.5 g/dl (32-36); Mean Corpuscular Hemoglobin 31.1 pg (26-34); Mean Corpuscular Volume 92.9 fl (80-100); Mean Platelet Volume 11.5 fl (7.4-10.4); Monocytes Absolute Auto 0.8 K/mm3 (0.1-0.6); Monocytes Percent Auto 7.7 % (2.6-8.5); Neutrophils Absolute Auto 8.2 K/mm3 (1.3-6.7); Neutrophils Percent Auto 80.3 % (45.5-73.1); Platelet Count Result 212 k/mm3 (150-375); Red Cell Distribution Width 12.7 % (11.5-14.5); White Blood Count 10.2 K/mm3 (4.5-10.0)
[2022-03-05 05:59] LABS: Alanine Aminotransferase 19 U/L (6-35); Albumin Level 3.7 g/dL (3.5-5.1); Alkaline Phosphatase 56 U/L (38-126); Anion Gap 5 mmol/L (8-16); Aspartate Amino Transferase 34 U/L (14-36); Bilirubin,Total 0.6 mg/dL (0.2-1.3); Blood Urea Nitrogen 9 mg/dL (7-17); Calcium 7.9 mg/dL (8.4-10.2); Carbon Dioxide 25 mmol/L (22-30); Chloride 99 mmol/L (98-107); Estimated CRCL calculation 64 ml/min; Estimated Glomerular Filt Rate > 60; Glucose 108 mg/dL (65-110); Potassium 3.8 mmol/L (3.4-5.0); Sodium 129 mmol/L (137-145)
[2022-03-05 06:06] LABS: Prealbumin 19.9 mg/dL (17.6-36.0)
--- NOTE | 2022-03-05 07:16 | PM.PNORT ---
Subjective Subjective Date/Time Seen: 03/05/22 07:16 Postop day 1 patient is awake and alert. Afebrile vital signs are stable. Hemoglobin is 8.7. Her albumin and pre-albumin were within normal range, total protein was at 6.0 which is just slightly low normal. Patient was having significant nausea last night following general anesthesia. She was not able to tolerate food. She is also having quite a bit increased pain this morning. She has up to the chair this morning. Dressing is dry she has mild swelling in the knee. Neurovascularly she is intact. Patient is concerned about taking her narcotic pain pills on an empty stomach due to the nausea. She has not had any this morning. Hopefully she will be able to tolerate breakfast which should help improve her nausea. She has had Zofran overnight for the nausea. Patient was unable to ambulate to the restroom last night due to increased pain and nausea. Sodium was 129. We will see how patient does today with physical therapy, she continues to have significant nausea and difficulty with pain control we may have to keep her an additional night and I did discuss this with her. If she improves over the course of the day and is comfortable and wishes to go home we will plan on discharging her home this afternoon. Objective Data Vital Signs Vital Signs: Vital Signs - 24 hr 03/04/22 09:55 03/04/22 15:39 03/04/22 15:54 Temperature 36.9 C 36.6 C Pulse Rate 72 97 99 Respiratory Rate 20 16 25 H Blood Pressure 140/57 L 119/66 147/89 H Pulse Oximetry 99 97 97 Oxygen Delivery Room Air Simple Face Mask Simple Face Mask Oxygen Flow Rate 10 10 03/04/22 16:09 03/04/22 16:24 03/04/22 16:39 Temperature Pulse Rate 88 87 83 Respiratory Rate 15 15 16 Blood Pressure 159/80 H 162/84 H 141/77 H Pulse Oximetry 100 100 100 Oxygen Delivery Simple Face Mask Simple Face Mask Room Air Oxygen Flow Rate 10 10 03/04/22 16:54 03/04/22 17:09 03/04/22 17:40 Temperature 36.6 C Pulse Rate 80 79 77 Respiratory Rate 13 12 14 Blood Pressure 141/63 H 153/66 H 154/70 H Pulse Oximetry 97 98 100 Oxygen Delivery Nasal Cannula Nasal Cannula Oxygen Flow Rate 2 2 03/04/22 17:55 03/04/22 18:25 03/04/22 18:40 Temperature 36.5 C 36.7 C Pulse Rate 78 75 Respiratory Rate 14 16 Blood Pressure 164/69 H 157/68 H Pulse Oximetry 100 100 100 Oxygen Delivery Nasal Cannula Oxygen Flow Rate 1 03/04/22 20:00 03/04/22 22:00 03/05/22 02:00 Temperature 36.4 C 36.5 C Pulse Rate 75 72 89 Respiratory Rate 16 21 H 20 Blood Pressure 170/68 H 127/58 L Pulse Oximetry 100 100 98 Oxygen Delivery Nasal Cannula Oxygen Flow Rate 1 Intake/Output Intake/Output: Intake & Output 03/02/22 03/03/22 03/04/22 03/05/22 23:59 23:59 23:59 23:59 Intake Total 1350 50 Output Total 500 200 Balance 850 -150 Meds/Results Medications: Active Medications Generic Name Dose Route Start Last Admin Trade Name Freq PRN Reason Stop Dose Admin Acetaminophen 1,000 mg 03/04/22 18:00 03/05/22 05:33 Acetaminophen 500 Mg Tablet PO 1,000 mg Q6H LORI Administration Apixaban 2.5 mg 03/05/22 09:00 Apixaban 2.5 Mg Tablet PO Q12HR LORI Ascorbic Acid 500 mg 03/05/22 09:00 Ascorbic Acid 500 Mg Tablet PO DAILY [facility] Calcium Carbonate 500 mg 03/05/22 09:00 Calcium Carbonate (Oscal) 500 Mg Tablet PO QAM LORI Cyclosporine 1 drop 03/04/22 21:00 03/04/22 20:18 Cyclosporine 0.4 Ml Ophth Solution EACH EYE 1 drop Q12HR LORI Administration Cefazolin Sodium 1 gm in 50 mls @ 100 mls/hr 03/04/22 20:00 03/05/22 04:34 Ancef 1 Gm/D5w 50 Ml Pm IVPB 03/05/22 12:29 Infused Q8H LORI Infusion Vancomycin HCl 500 mg/ 100 mls @ 100 mls/hr 03/04/22 23:00 03/04/22 23:01 Dextrose IVPB 03/05/22 11:59 Infused Q12H LORI Infusion Levothyroxine Sodium 50 mcg 03/05/22 06:30 03/05/22 05:33 Levothyroxine Sodium 50 Mcg Tablet PO 50 mcg DAILY@0630 [facility] Admin
--- NOTE | 2022-03-05 08:40 | PCPTNOTE ---
Attempted PT evaluation, Per RN, pain not controlled. RN requested therapist return after pain medication has been administered. Will Follow.
[2022-03-05] MEDS: MORPHINE SULFATE (*CRX) 2 MG/ML INJ IV PUSH ×2 (08:47→10:51)
[2022-03-05] MEDS: DEXAMETHASONE SOD PHOS INJ 4 MG/ML VIAL 8 MG IV PUSH (08:54)
--- NOTE | 2022-03-05 09:18 | WPDANESPN ---
Anes - Prog Note Post-Op Date/Time: 03/05/22 09:18 Cardiovascular status: normal Respiratory status: normal Airway patency: baseline Mental status: baseline Post-Op hydration status: normal Vital Signs: Last Vital Signs Temp 98.1 F 03/05/22 08:00 Pulse 89 03/05/22 08:00 Resp 18 03/05/22 08:00 BP 131/53 L 03/05/22 08:00 Pulse Ox 100 03/05/22 08:00 O2 Del Method Nasal Cannula 03/04/22 20:00 O2 Flow Rate 1 03/04/22 20:00 Pain Score (VAS): 10/06 I/O: Intake & Output 03/04/22 03/05/22 03/05/22 23:59 07:59 15:59 Intake Total 950 250 50 Output Total 500 700 Balance 450 -450 50 Laboratory Tests 03/05/22 05:04 03/05/22 05:04 03/04/22 03/05/22 03/05/22 10:51 05:04 05:04 WBC 10.2 H RBC 2.80 L Hgb 8.7 L D Hct 26.0 L MCV 92.9 MCH 31.1 MCHC 33.5 RDW 12.7 Plt Count 212 MPV 11.5 H Immature Gran % (Auto) 0.3 Neut % (Auto) 80.3 H Lymph % (Auto) 11.5 L [place] % (Auto) 7.7 Eos % (Auto) 0.1 Baso % (Auto) 0.1 L Lymph # (Auto) 1.18 [place] # (Auto) 0.8 H Eos # (Auto) 0.0 Baso # (Auto) 0.0 Abs Immat Gran (auto) 0.03 Absolute Neuts (auto) 8.2 H Absolute Nucleated RBC 0.0 Nucleated RBC % 0.0 Sodium 129 L Potassium 3.8 Chloride 99 Carbon Dioxide 25 Anion Gap 5 L BUN 9 D Creatinine 0.50 L Estim Creat Clear Calc 64 Estimated GFR > 60 Glucose 108 Calcium 7.9 L Total Bilirubin 0.6 AST 34 ALT 19 Alkaline Phosphatase 56 Total Protein 6.0 L Albumin 3.7 Prealbumin 19.9 Blood Type O Positive Antibody Screen Negative Post-procedural complaints: none Patient Feedback: Patient satisfied with anesthetic care.
--- NOTE | 2022-03-05 09:38 | PCOTNOTE ---
Attempted OT evaluation, Per RN, pain not controlled. RN requested therapist return after pain medication has been administered. Will Follow.
[2022-03-05] MEDS: cycloSPORINE 0.4 ML OPHTH SOLUTION 1 DROP EACH EYE ×2 (09:59→20:10)
[2022-03-05] MEDS: CHOLECALCIFEROL 1,000 UNITS TABLET 2000 UNITS PO (09:59)
[2022-03-05] MEDS: ASCORBIC ACID 500 MG TABLET PO (09:59)
[2022-03-05] MEDS: VITAMIN B COMPLEX CAPSULE 1 CAP PO (09:59)
[2022-03-05] MEDS: APIXABAN 2.5 MG TABLET PO ×2 (10:00→20:10)
[2022-03-05] MEDS: SENNA/DOCUSATE SODIUM TABLET 2 TAB PO ×2 (10:00→17:06)
[2022-03-05] MEDS: CALCIUM CARBONATE (OSCAL) 500 MG TABLET PO (10:00)
[2022-03-05] MEDS: polyethylene glycoL 3350 17 GM POWD.PACK PO (10:01)
[2022-03-05] MEDS: MULTIVITAMINS THERAPEUTIC TAB (*BKC) 1 TABLET PO (10:01)
[2022-03-05] MEDS: MELOXICAM 7.5 MG TABLET PO (10:01)
[2022-03-05] MEDS: VANCOMYCIN HCL 500 MG in DEXTROSE 5% 100 ML 100 MG IVPB (10:51)
--- NOTE | 2022-03-05 11:02 | PM.IMCN ---
Assessment and Plan Assessment and plan (1) Status post total right knee replacement: Code(s): Z96.651 - Presence of right artificial knee joint Status: Acute Assessment and Plan: POD #1 right total knee arthroplasty Management per Orthopedic surgery Eliquis for DVT prophylaxis Continue PT/OT Analgesics available as needed (2) Anemia: Code(s): D64.9 - Anemia, unspecified Status: Acute Assessment and Plan: Decline in hemoglobin today from preop labs Hemoglobin is 8.7 May be related to surgical blood loss vs dilutional effect No evidence of bleeding Repeat H&H this afternoon to ensure remaining stable (3) Hyponatremia: Code(s): E87.1 - Hypo-osmolality and hyponatremia Status: Acute Assessment and Plan: Sodium is 129 Etiology for this is unclear. May be SIADH due to pain Urine sodium and urine creatinine pending Repeat sodium this afternoon (4) Acquired hypothyroidism: Code(s): E03.9 - Hypothyroidism, unspecified Status: Acute Assessment and Plan: Continue levothyroxine HPI Data of Consult Consult date: 03/05/22 Requesting Physician: Heladio Fox MD Primary Care Provider: Savannah ChurchillMD Consult Narrative Narrative: Date of service: 03/05/2022 Thalia Rod is a 76 year old female with a history of hypothyroidism, lupus, Sjogren's, osteoporosis who is POD #1 right total knee arthroplasty. She is being seen in consultation for medical management. She is having a significant amount of pain today. She rates her pain as 10/10 and states this has been persistent all last night and all day so far today. Her pain is mostly concentrated in the back of the knee but she also complains of some pain ?on the inside and the middle.? She believes the knee feels warm to touch. She is able to stand up and hit to the commode, but any movement causes given more pain. She had an episode of emesis last night and has been hesitant to eat anything today. She did have some Jell-O with her medications and reports she had another episode of emesis following this. She is keeping down water. She denies shortness of breath or cough. She does report feeling very anxious. She states the pain is increasing her anxiety. Review of Systems Review of Systems: Her last bowel movement was 1 day ago. She denies chest pain but does endorse palpitations when her pain flares. She also complains of dysuria today which she believes may have been from having a catheter. She denies suprapubic pain, flank pain, or back pain. She denies dizziness, lightheadedness, or weakness. Denies headache. Denies melena or hematochezia. [facility] Past Medical History Medical History (Updated 03/05/22 @ 11:12 by Juliette Jackman PA-C) Acquired hypothyroidism Elevated LDL cholesterol level Hypothyroidism Lumbar radiculopathy, right Lupus erythematosus overlap syndrome Osteoporosis Seronegative rheumatoid arthritis Sjogrens syndrome Surgical History Surgical History (Updated 03/05/22 @ 11:12 by Juliette Jackman PA-C) History of total right knee replacement Hx of tonsillectomy Family History Family History Father Patient's father is Mother Family history of heart disease in male family member before age 55 Sibling Family history of heart disease in male family member before age 55 Social History Social History (Updated 03/05/22 @ 11:17 by Juliette Jackman PA-C) Social History: Ms. Rod lives at home with her . She is independent in all daily activities. She is retired. Her PCP is Dr. Savannah Churchill. She designates her , Pierre, as her surrogate decision maker and she would like to be a full code. Smoking status: Never smoker Second hand tobacco smoke exposure: No Alcohol intake: never Substance use: never Substance use type
[2022-03-05 11:23] LABS: Creatinine Urine 70.8 mg/dL
[2022-03-05 11:27] LABS: Sodium Urine Random 130 meq/L
[2022-03-05 12:41] LABS: Hematocrit 27.5 % (37.0-47.0); Hemoglobin 9.4 g/dL (12.0-15.0)
[2022-03-05 15:33] LABS: Sodium 127 mmol/L (137-145)
[2022-03-05] MEDS: LORATADINE 10 MG TABLET PO (20:10)
[2022-03-05 21:41] LABS: Sodium 125 mmol/L (137-145)
[2022-03-05 21:58] LABS: Appearance Urine Clear (Clear); Bilirubin Urine Negative (Negative); Blood Urine 1+ (Negative); Color Urine Yellow (Yellow); Glucose Urine UA Negative (Negative); Ketones Urine Negative (Negative); Leukocyte Esterase Ur Negative LEU/UL (Negative); Nitrate Urine Negative (Negative); Protein Urine Negative (Negative); Urobilinogen Urine 0.2 mg/dL (<2.0)
[2022-03-05 22:02] LABS: Squamous Epithelial Cell Urine Rare /hpf (Few)
[2022-03-05 22:08] LABS: Add Urine Microscopic? YES
[2022-03-06] VITALS (7 sets, daily range): BP systolic 126–146; BP diastolic 43–63; PULSE 84–98; RESP 16–20; TEMP 36.1–37.2; O2SAT 97–100
[2022-03-06] MEDS: oxyCODONE HCL (*CRX) 5 MG TAB IR PO ×7 (00:11→21:14)
[2022-03-06] MEDS: ACETAMINOPHEN 500 MG TABLET 1000 MG PO ×4 (00:11→18:04)
[2022-03-06] MEDS: LEVOTHYROXINE SODIUM 50 MCG TABLET PO (05:33)
[2022-03-06 07:55] LABS: Hematocrit 28.3 % (37.0-47.0); Hemoglobin 9.6 g/dL (12.0-15.0); Mean Corpuscular HGB Conc 33.9 g/dl (32-36); Mean Corpuscular Hemoglobin 32.2 pg (26-34); Mean Platelet Volume 11.1 fl (7.4-10.4); Platelet Count Result 213 k/mm3 (150-375); Red Blood Count 2.98 M/mm3 (4.2-5.4); Red Cell Distribution Width 12.9 % (11.5-14.5); White Blood Count 9.3 K/mm3 (4.5-10.0)
--- NOTE | 2022-03-06 07:55 | PM.PNORT ---
Subjective Subjective Date/Time Seen: 03/06/22 07:55Postop day 2 patient is alert. Afebrile os signs stable. Nausea is much better. Pain overall is better controlled. She did do better with therapy yesterday afternoon. She has moderate swelling in the knee. She has been sitting in the chair too much with the leg down. Her sodium dropped to 125 yesterday afternoon. Patient was asymptomatic from this. Labs are pending this morning. Patient does feel a lot more comfortable this morning would like to go home today. We will see how her labs are this morning. If they have improved and she continues do well with therapy this morning we will plan on sending her home later this morning. Objective Data Vital Signs Vital Signs: Vital Signs - 24 hr 03/05/22 08:00 03/05/22 08:00 03/05/22 11:00 Temperature 36.7 C Pulse Rate 89 Respiratory Rate 18 Blood Pressure 131/53 L Pulse Oximetry 100 Oxygen Delivery Room Air Room Air 03/05/22 12:07 03/05/22 16:03 03/05/22 09:00 Temperature 36.8 C 37.0 C Pulse Rate 84 77 92 Respiratory Rate 16 14 20 Blood Pressure 141/63 H 152/54 H Pulse Oximetry 100 99 97 Oxygen Delivery Room Air 03/05/22 20:01 03/05/22 20:00 03/05/22 22:00 Temperature 36.7 C Pulse Rate 90 87 Respiratory Rate 19 18 Blood Pressure 140/56 L Pulse Oximetry 96 96 Oxygen Delivery Room Air Room Air 03/06/22 02:25 03/06/22 06:00 Temperature 36.7 C 36.1 C L Pulse Rate 92 98 Respiratory Rate 18 18 Blood Pressure 126/43 L 139/53 L Pulse Oximetry 97 97 Oxygen Delivery Intake/Output Intake/Output: Intake & Output 03/03/22 03/04/22 03/05/22 03/06/22 23:59 23:59 23:59 23:59 Intake Total 1350 990 240 Output Total 500 1900 900 Balance 199 -622 -811 Meds/Results Medications: Active Medications Generic Name Dose Route Start Last Admin Trade Name Freq PRN Reason Stop Dose Admin Acetaminophen 1,000 mg 03/04/22 18:00 03/06/22 05:33 Acetaminophen 500 Mg Tablet PO 1,000 mg Q6H LORI Administration Apixaban 2.5 mg 03/05/22 09:00 03/05/22 20:10 Apixaban 2.5 Mg Tablet PO 2.5 mg Q12HR LORI Administration Ascorbic Acid 500 mg 03/05/22 09:00 03/05/22 09:59 Ascorbic Acid 500 Mg Tablet PO 500 mg DAILY LORI Administration Calcium Carbonate 500 mg 03/05/22 09:00 03/05/22 10:00 Calcium Carbonate (Oscal) 500 Mg Tablet PO 500 mg QAM LORI Administration Cyclosporine 1 drop 03/04/22 21:00 03/05/22 20:10 Cyclosporine 0.4 Ml Ophth Solution EACH EYE 1 drop Q12HR LORI Administration Levothyroxine Sodium 50 mcg 03/05/22 06:30 03/06/22 05:33 Levothyroxine Sodium 50 Mcg Tablet PO 50 mcg DAILY@0630 [facility] Administration Loratadine 10 mg 03/04/22 21:00 03/05/22 20:10 Loratadine 10 Mg Tablet PO 10 mg HS LORI Administration Meloxicam 7.5 mg 03/05/22 08:00 03/05/22 10:01 Meloxicam 7.5 Mg Tablet PO 7.5 mg DAILY@0800 [facility] Administration Morphine Sulfate 2 mg 03/04/22 17:23 03/05/22 10:51 Morphine Sulfate (*Crx) 2 Mg/Ml Inj IV PUSH 2 mg Q1H PRN Administration Pain Rated 7-10 Multivitamins Therapeutic 1 tablet 03/05/22 09:00 03/05/22 10:01 Multivitamins Therapeutic Tab (*Bkc) PO 1 tablet DAILY LORI Administration Naloxone HCl 0.1 mg 03/04/22 17:23 Naloxone Hcl 0.4 Mg/Ml Vial IV PUSH Q2M PRN Opiate Reversal Ondansetron HCl 4 mg 03/04/22 19:02 03/05/22 12:02 Ondansetron Inj 4 Mg/2 Ml Vial IV PUSH 4 mg Q6H PRN Administration Nausea And Vomiting Oxycodone HCl 5 mg 03/04/22 21:00 03/06/22 05:33 Oxycodone Hcl (*Crx) 5 Mg Tab Ir PO 5 mg Q4HR LORI Administration Oxycodone HCl 5 mg 03/04/22 17:23 Oxycodone Hcl (*Crx) 5 Mg Tab Ir PO Q4H PRN Pain Rated 4-10 Polyethylene Glycol 17 gm 03/05/22 09:00 03/05/22 10:01 Polyethylene Glycol 3350 17 Gm Powd.Pack PO 17 gm QAM LORI Administration Senna/Docusate Sodium 2 tab 03/04/22 18:00 06
[2022-03-06 08:09] LABS: Anion Gap 8 mmol/L (8-16); Blood Urea Nitrogen 10 mg/dL (7-17); Calcium 8.7 mg/dL (8.4-10.2); Carbon Dioxide 25 mmol/L (22-30); Chloride 97 mmol/L (98-107); Estimated CRCL calculation 47 ml/min; Estimated Glomerular Filt Rate > 60; Glucose 99 mg/dL (65-110); Potassium 3.9 mmol/L (3.4-5.0); Sodium 130 mmol/L (137-145)
--- NOTE | 2022-03-06 08:37 | PM.DS ---
DS: Admitting Diagnosis Discharge Date 03/06 Admitting Diagnosis right knee DJD DS: Discharge Diagnosis Discharge Diagnosis Plan 76-year-old female who underwent right total knee arthroplasty on 03/04. On procedure without complications. Patient was having difficulty with pain control immediately after surgery. She has also had quite a bit of nausea the evening of surgery as well as into postop day 1. Symptoms have improved. Patient's appetite has improved as well. Patient was kept for an additional night because of poor pain control as well as the nausea on postop day 1. She did do well with physical therapy. She had a drop in her sodium, it was down to 125 late on postop day 1. It did improve on postop day 2-130. Hip patient has been completely asymptomatic from the low sodium. Hemoglobin on postop day 2 was 9.6. Patient was asymptomatic from mild anemia. Overall patient has improved significantly on postop day 2 and is anxious to go home. She did have moderate swelling in the knee. Dressing was intact and dry. She had no swelling in either lower extremity. Patient was strongly advised to Keep the leg elevated at home to prevent swelling in the knee. We do not want her to use ice on the knee she has very thin skin in this could cause damage. Patient is on Eliquis for DVT prophylaxis. She is on meloxicam 7.5 mg as well as oxycodone 5 mg and schedule Tylenol for pain control. She is weight-bearing as tolerated. She will also go home on Senokot MiraLax. I emphasized to the patient multiple times she needs to keep the leg elevated at home to get the swelling down in her knee. She should avoid sitting in the chair for no more than 20 minutes at a time 3 times a day. Other than that she should have leg elevated either on the bed her in the on the couch. Instructions were written her discharge summary. She has outpatient therapy starting next Wednesday. Patient was advised any questions or concerns when she goes home she should call the office otherwise we will see her at her appointment date. DS: Summary Hospital Course Hospital Course: stable Time Spent with Patient Time attestation: Total time spent providing and/or coordinating discharge services: DS: Data Data Completed and Pending Labs on day of discharge: Labs from last 24 hours 03/06/22 03/06/22 03/05/22 07:45 07:45 21:50 WBC 9.3 RBC 2.98 L Hgb 9.6 L Hct 28.3 L MCV 95.0 MCH 32.2 MCHC 33.9 RDW 12.9 Plt Count 213 MPV 11.1 H Sodium 130 L Potassium 3.9 Chloride 97 L Carbon Dioxide 25 Anion Gap 8 BUN 10 Creatinine 0.70 Estim Creat Clear Calc 47 Estimated GFR > 60 Glucose 99 Calcium 8.7 Urine Color Yellow Urine Appearance Clear Urine pH 6.0 Ur Specific [place] 1.010 Urine Protein Negative Urine Glucose (UA) Negative Urine Ketones Negative Ur Blood (Man) 1+ H Urine Nitrate Negative Urine Bilirubin Negative Urine Urobilinogen 0.2 Leukocyte Esterase Rfl Negative Urine WBC 4-6 H Ur Squamous Epith Cells Rare Ur Random Sodium Urine Creatinine 03/05/22 03/05/22 03/05/22 21:08 15:09 12:28 WBC RBC Hgb 9.4 L Hct 27.5 L MCV MCH MCHC RDW Plt Count MPV Sodium 125 L 127 L Potassium Chloride Carbon Dioxide Anion Gap BUN Creatinine Estim Creat Clear Calc Estimated GFR Glucose Calcium Urine Color Urine Appearance Urine pH Ur Specific [place] Urine Protein Urine Glucose (UA) Urine Ketones Ur Blood (Man) Urine Nitrate Urine Bilirubin Urine Urobilinogen Leukocyte Esterase Rfl Urine WBC Ur Squamous Epith Cells Ur Random Sodium Urine Creatinine 03/05/22 03/05/22 11:10 10:26 WBC RBC Hgb Hct MCV MCH MCHC RDW Plt Count MPV Sodium Pending Potassium Chloride Carbon Dioxide A
[2022-03-06] MEDS: ONDANSETRON INJ 4 MG/2 ML VIAL IV PUSH (09:10)
--- NOTE | 2022-03-06 09:14 | PC.NURSE ---
pt given zofran for mild nausea, will administer meds when it resolves
[2022-03-06] MEDS: APIXABAN 2.5 MG TABLET PO ×2 (09:40→21:14)
[2022-03-06] MEDS: cycloSPORINE 0.4 ML OPHTH SOLUTION 1 DROP EACH EYE ×2 (09:40→21:14)
[2022-03-06] MEDS: MELOXICAM 7.5 MG TABLET PO (09:40)
[2022-03-06] MEDS: SENNA/DOCUSATE SODIUM TABLET 2 TAB PO ×2 (09:42→18:03)
--- NOTE | 2022-03-06 09:49 | PC.NURSE ---
pt able to take PO meds but does not want to take vitamins due to earlier nausea
--- NOTE | 2022-03-06 13:16 | PM.IMPN ---
Progress Note: A&P Assessment and Plan (1) Status post total right knee replacement: Code(s): Z96.651 - Presence of right artificial knee joint Status: Acute Assessment and Plan: POD #1 right total knee arthroplasty Management per Orthopedic surgery Eliquis for DVT prophylaxis Continue PT/OT Analgesics available as needed (2) Anemia: Code(s): D64.9 - Anemia, unspecified Status: Acute Assessment and Plan: Decline in hemoglobin postoperatively May be related to surgical blood loss vs dilutional effect H&H has stabilized, improved today at 9.6 No evidence of bleeding (3) Hyponatremia: Code(s): E87.1 - Hypo-osmolality and hyponatremia Status: Acute Assessment and Plan: Sodium declined to 125 Urine sodium is elevated at 130 Likely SIADH secondary to pain 1500 cc fluid restriction implemented Sodium improved. 130 today. Continue to monitor sodium levels closely (4) Acquired hypothyroidism: Code(s): E03.9 - Hypothyroidism, unspecified Status: Acute Assessment and Plan: Continue levothyroxine Subjective Date/time seen: 03/06/22 13:16 Interval history: Date of service: 03/06/2022 Thalia Rod is a 76 year old female with a history of hypothyroidism, lupus, Sjogren's, osteoporosis who is POD #2 right total knee arthroplasty. She is feeling better today. At this time she has no pain in her knee. This morning she participated in therapy and reports her pain did increase to 10/10 but she was able to tolerate getting up. She felt nauseous this morning but this improved after taking medications. She ate about 1 bite of her breakfast but has been tolerating liquids. No episodes of emesis. Her nausea is currently resolved. She did feel a bit anxious this morning but this is also resolved. This time she is feeling well and has no complaints. She denies shortness breath, cough, chest pain, palpitations, dizziness, lightheadedness, or weakness. Review of Systems Review of Systems: All systems reviewed & are unremarkable except as noted in HPI and below Exam Narrative: General: Thin, well-appearing 76-year-old female, sitting up in bed, comfortable, NARD Neuro: awake, alert and oriented x4, speech clear, no focal neuro deficits noted HEENMT: normocephalic, atraumatic, EOMI, sclerae anicteric Respiratory: clear to auscultation bilaterally, nonlabored breathing Cardio: regular rate, regular rhythm with S1-S2 Abdomen: nondistended, normoactive bowel sounds, soft, nontender to palpation Extremities: Right knee is edematous and minimally tender to palpation, BLE without edema, erythema, or tenderness to palpation, DP pulses 2+ bilaterally Skin: Faint ecchymosis surrounding the right knee, no rashes or lesions, warm and dry Psych: appropriate mood and affect, judgment and insight intact Objective Data Vital Signs Vital Signs: Vital Signs - 24 hr 03/05/22 16:03 03/05/22 20:01 03/05/22 20:00 Temperature 98.6 F Pulse Rate 77 90 Respiratory Rate 14 19 Blood Pressure 152/54 H Pulse Oximetry 99 96 Oxygen Delivery Room Air Room Air 03/05/22 22:00 03/06/22 02:25 03/06/22 06:00 Temperature 98.1 F 98.1 F 97.0 F L Pulse Rate 87 92 98 Respiratory Rate 18 18 18 Blood Pressure 140/56 L 126/43 L 139/53 L Pulse Oximetry 96 97 97 Oxygen Delivery 03/06/22 09:20 03/06/22 10:00 03/06/22 08:35 Temperature 98.3 F Pulse Rate 84 Respiratory Rate 16 Blood Pressure 144/50 H Pulse Oximetry 99 100 Oxygen Delivery Room Air Room Air Intake/Output Intake/Output: Intake & Output 03/03/22 03/04/22 03/05/22 03/06/22 23:59 23:59 23:59 23:59 Intake Total 1350 990 480 Output Total 500 1900 900 Balance 836 -457 -415 Meds/Results Medications: Active Medications Generic Name Dose Route Start Last Admin Trade Name Freq PRN Reason Stop Dose Admin Acetaminophen 1,000 mg 03/04/22 18:00
[2022-03-06] MEDS: LORATADINE 10 MG TABLET PO (21:15)
[2022-03-07] MEDS: ACETAMINOPHEN 500 MG TABLET 1000 MG PO ×2 (05:26→12:50)
[2022-03-07] MEDS: oxyCODONE HCL (*CRX) 5 MG TAB IR PO ×2 (05:26→09:48)
[2022-03-07] MEDS: LEVOTHYROXINE SODIUM 50 MCG TABLET PO (05:26)
[2022-03-07 06:00] VITALS: BP 159/55; PULSE 97; RESP 20; TEMP 37.1; O2SAT 98
[2022-03-07 06:01] LABS: Hematocrit 24.1 % (37.0-47.0); Mean Corpuscular HGB Conc 33.2 g/dl (32-36); Mean Corpuscular Hemoglobin 31.4 pg (26-34); Mean Corpuscular Volume 94.5 fl (80-100); Mean Platelet Volume 11.2 fl (7.4-10.4); Platelet Count Result 191 k/mm3 (150-375); Red Blood Count 2.55 M/mm3 (4.2-5.4); Red Cell Distribution Width 12.8 % (11.5-14.5)
[2022-03-07 06:06] LABS: Anion Gap 3 mmol/L (8-16); Blood Urea Nitrogen 8 mg/dL (7-17); Calcium 7.8 mg/dL (8.4-10.2); Carbon Dioxide 29 mmol/L (22-30); Chloride 100 mmol/L (98-107); Estimated CRCL calculation 54 ml/min; Estimated Glomerular Filt Rate > 60; Glucose 98 mg/dL (65-110); Potassium 3.5 mmol/L (3.4-5.0); Sodium 132 mmol/L (137-145)
[2022-03-07] MEDS: MELOXICAM 7.5 MG TABLET PO (09:48)
[2022-03-07] MEDS: CHOLECALCIFEROL 1,000 UNITS TABLET 2000 UNITS PO (09:48)
[2022-03-07] MEDS: cycloSPORINE 0.4 ML OPHTH SOLUTION 1 DROP EACH EYE (09:48)
[2022-03-07] MEDS: MULTIVITAMINS THERAPEUTIC TAB (*BKC) 1 TABLET PO (09:48)
[2022-03-07] MEDS: ASCORBIC ACID 500 MG TABLET PO (09:48)
[2022-03-07] MEDS: APIXABAN 2.5 MG TABLET PO (09:48)
[2022-03-07] MEDS: SENNA/DOCUSATE SODIUM TABLET 2 TAB PO (09:49)
--- NOTE | 2022-03-07 10:29 | PM.DS ---
DS: Admitting Diagnosis Discharge Date 03/07/21 Admitting Diagnosis Severe osteoarthritis right knee with grade 3 valgus deformity DS: Discharge Diagnosis Discharge Diagnosis (1) Status post total right knee replacement: Code(s): Z96.651 - Presence of right artificial knee joint Status: Acute Assessment and Plan: Patient is doing satisfactorily. She has mild to moderate diffuse swelling in the knee as expected. Incision is dry and intact. She is neurologically intact in the right lower extremity and able to do straight leg raise and is weight-bearing as tolerated. Outpatient physical therapy as scheduled. (2) Anemia: Code(s): D64.9 - Anemia, unspecified Status: Acute Assessment and Plan: Acute blood loss anemia. Hemoglobin is 8.0 and stable. Platelets [id number]. Patient is afebrile with vital signs stable and she is not experiencing lightheadedness today. (3) Hyponatremia: Code(s): E87.1 - Hypo-osmolality and hyponatremia Status: Acute Assessment and Plan: Patients sodium is up to 134. It went down to 125 after the surgery on postop day 1 DS: Summary Hospital Course Reason for hospitalization: Patient was hospitalized to undergo a right total knee arthroplasty. Her postoperative course was complicated by poor pain control and extreme nausea and relative intolerance to narcotic analgesics. E discharge was planned for yesterday but in the morning she felt lightheaded getting up to go to the bathroom so she was kept for additional day of observation. She is somewhat frail weighing only 49 kg and it was necessary to keep her another night for observation as would have been unsafe to discharge her with active syncope. Seems to be resolved today. Her sodium was 125 the evening following day of surgery and is up to 130 for now. Hemoglobin is 8.0 and stable. Her vital signs are stable. Her main complaint now is nausea. Her pain is well controlled and we will stop the 5 mg oxycodone tablets. She has a prescription for 5 mg tablets at the pharmacy I will have her take half a tablet every 4 hours as needed which may reduce the nausea. She has not had a bowel movement yet. She did not have a bowel movement for 2 days prior to coming in and therefore we will give her a Fleet's enema this morning before discharge to make sure she tolerates that and has a bowel movement before discharge. She is scheduled to follow-up with me in 9 days in the office. Importance of elevation was discussed. Hospital Course: See below Status at Discharge Cognitive/behavioral status at discharge: Alert and oriented Time Spent with Patient Time attestation: Total time spent providing and/or coordinating discharge services: DS: Data Data Completed and Pending Labs on day of discharge: Labs from last 24 hours 03/07/22 03/07/22 05:38 05:38 WBC 7.0 RBC 2.55 L Hgb 8.0 L Hct 24.1 L MCV 94.5 MCH 31.4 MCHC 33.2 RDW 12.8 Plt Count 191 MPV 11.2 H Sodium 132 L Potassium 3.5 Chloride 100 Carbon Dioxide 29 Anion Gap 3 L BUN 8 Creatinine 0.60 L Estim Creat Clear Calc 54 Estimated GFR > 60 Glucose 98 Calcium 7.8 L Discharge Plan Discharge Attending physician on discharge: Heladio Fox Consulting providers: Juliette Jackman Discharging Clinician: Jhonatan Zelaya Anticipated Discharge Date/Time: 03/06/22 08:26 Patient Disposition: Home, Self-Care Activity: may shower and other - see discharge instructions Diet: as tolerated Wound Care Instructions: follow printed instructions and other - see discharge instructions Discharge Instructions: HELADIO FOX M.D [facility] [address] [place] [id number] POST-OPERATIVE DISCHARGE INSTRUCTIONS TOTAL KNEE ARTHROPLASTY 1. When resting, lie on back with leg elevated above hear to minimize swelling. Significant swellin
--- NOTE | 2022-03-07 12:13 | PM.IMPN ---
Progress Note: A&P Assessment and Plan (1) Status post total right knee replacement: Code(s): Z96.651 - Presence of right artificial knee joint Status: Acute Assessment and Plan: POD #3 right total knee arthroplasty Management per Orthopedic surgery Eliquis for DVT prophylaxis She will follow-up with Dr. Fox in 9 days (2) Anemia: Code(s): D64.9 - Anemia, unspecified Status: Acute Assessment and Plan: Decline in hemoglobin postoperatively May be related to surgical blood loss vs dilutional effect Hemoglobin is 8.0 today. No evidence of blood loss. Patient is asymptomatic. (3) Hyponatremia: Code(s): E87.1 - Hypo-osmolality and hyponatremia Status: Acute Assessment and Plan: Sodium declined to 125 on POD1. Urine sodium elevated at 130 Likely SIADH secondary to pain 1500 cc fluid restriction implemented during admission Sodium improved following fluid restriction. Sodium 132 at time of discharge (4) Acquired hypothyroidism: Code(s): E03.9 - Hypothyroidism, unspecified Status: Acute Assessment and Plan: Continue levothyroxine Subjective Date/time seen: 03/07/22 12:13 Interval history: Date of service: 03/07/2022 Thalia Rod is a 76 year old female with a history of hypothyroidism, lupus, Sjogren's, osteoporosis who is POD #3 right total knee arthroplasty. She is doing well today. Her pain is well controlled. She has been participating in therapy. She is tolerating her diet. She still has not had a bowel movement and does endorse feeling a bit constipated. She is going to have an enema. She denies any urinary symptoms. No shortness breath, cough, chest pain, dizziness, lightheadedness, or weakness. She will be returning home today which she lives with her who was available to assist her if needed. Review of Systems Review of Systems: All systems reviewed & are unremarkable except as noted in HPI and below Exam Narrative: General: Thin, well-appearing 76-year-old female, sitting up in a chair, comfortable, NARD Neuro: awake, alert and oriented x4, speech clear, no focal neuro deficits noted HEENMT: normocephalic, atraumatic, EOMI, sclerae anicteric Respiratory: clear to auscultation bilaterally, nonlabored breathing Cardio: regular rate, regular rhythm with S1-S2 Abdomen: nondistended, normoactive bowel sounds, soft, nontender to palpation Extremities: BLE without edema, erythema, or tenderness to palpation, DP pulses 2+ bilaterally Skin: no rashes or lesions, warm and dry Psych: appropriate mood and affect, judgment and insight intact Objective Data Vital Signs Vital Signs: Vital Signs - 24 hr 03/06/22 14:00 03/06/22 20:00 03/06/22 22:00 Temperature 98.9 F 97.7 F Pulse Rate 89 89 89 Respiratory Rate 16 16 20 Blood Pressure 140/63 146/55 H Pulse Oximetry 100 100 98 Oxygen Delivery Room Air 03/07/22 06:00 03/07/22 08:30 Temperature 98.8 F Pulse Rate 97 Respiratory Rate 20 Blood Pressure 159/55 H Pulse Oximetry 98 Oxygen Delivery Room Air Intake/Output Intake/Output: Intake & Output 03/04/22 03/05/22 03/06/22 03/07/22 23:59 23:59 23:59 23:59 Intake Total 5757 924 6145 490 Output Total 500 1900 1650 1300 Balance 850 910 -240 -810 Meds/Results Medications: Active Medications Generic Name Dose Route Start Last Admin Trade Name Freq PRN Reason Stop Dose Admin Acetaminophen 1,000 mg 03/04/22 18:00 03/07/22 05:26 Acetaminophen 500 Mg Tablet PO 1,000 mg Q6H LORI Administration Apixaban 2.5 mg 03/05/22 09:00 03/07/22 09:48 Apixaban 2.5 Mg Tablet PO 2.5 mg Q12HR LORI Administration Ascorbic Acid 500 mg 03/05/22 09:00 03/07/22 09:48 Ascorbic Acid 500 Mg Tablet PO 500 mg DAILY LORI Administration Calcium Carbonate 500 mg 03/05/22 09:00 03/07/22 09:52 Calcium Carbonate (Oscal) 500 Mg Tablet PO Not Given QA
[2022-03-07] MEDS: oxyCODONE HCL (*CRX) 2.5 MG TAB IR PO (12:50)
== END 2022-03-07 14:29 | disposition home or self-care (01) ==
LOC: ANHSURGERY 15:58 → ANH2MED 15:58
PROVIDERS: Physician Assistant; Admitting Provider Orthopaedic Surgery; PCP Internal Medicine; Visit Provider Orthopaedic Surgery
PROC: (CPT 27447; principal; 2022-03-04 12:00)
DX: M17.11 Unilateral primary osteoarthritis, right knee (principal); G89.18 Other acute postprocedural pain; R11.0 Nausea; D64.9 Anemia, unspecified; E87.1 Hypo-osmolality and hyponatremia; E03.9 Hypothyroidism, unspecified; M35.00 Sjogren syndrome, unspecified; E78.00 Pure hypercholesterolemia, unspecified; L93.0 Discoid lupus erythematosus; M06.00 Rheumatoid arthritis without rheumatoid factor, unspecified site; M54.16 Radiculopathy, lumbar region
CPT/HCPCS: 27447; 36415; 73560; 80048; 80053; 80307; 81001; 82040; 82570; 83036; 84134; 84295; 84300; 85014; 85018; 85025; 85027; 86850; 86900; 86901; 87070; 93005; 97110; 97116; 97161; 97165; 97530; 97535; A9270; C1713; C1776; G0378; J0171; J0690; J1100; J1170; J2250; J2270; J2405; J2704; J2795; J3010; J3370; J7030; J7120

== ENCOUNTER 2022-04-23 11:00 | Outpatient (RCR) | payer OTHER, SELFPAY ==
--- NOTE | 2022-03-12 16:32 | PTOPEVAL ---
PHYSICAL THERAPY INITIAL EVALUATION. Thank you for referring Thalia Rod to [facility] [place] The patient is scheduled to be seen for therapy? 2x/week for 8 weeks. Please review, sign, date and return this plan of care DIVINA. I agree with and certify that the following plan of care is medically necessary. Referring Physician Date Attending Provider: Heladio Fox MD *PT Outpatient Evaluation Start: 03/12/22 Evaluation Information Diagnosis R TKA Onset 03/04/22 Subjective Information Pt states she had a TKA on 03/04 Query Text:As Reported By Patient. Since then she has been Family so nauseous it has been hard to sit upright to do her exercises. Pt states she enjoys cooking and exercising and usually does all of her housework, she would like to get back to doing these things. Pain Assessment Self Report Pain Assessment Right Knee(s) Reported Pain Level 7 Greatest Pain Intensity 10 Lower Extremity Range of Motion Gross Lower Extremity Range of Motion L knee active 0-140 Comments R knee active flexion 52 R knee active extension -29 R knee passive flexion 54 Lower Extremity Muscle Strength Testing Gross Lower Extremity Strength L hip flexion 4/5 L knee flexion/extension 4/5 R knee lacking 35 deg from terminal knee extension with long arc quad Palpation Assessment Palpation clean and dry bandage applied over incision Balance Assessment Timed Up and Go Test (TUG) (Seconds) 44 Assistive Devices Walker, Wheeled 5 Time Sit to Stand Time in Seconds 24 5 Time Sit to Stand Comments With use of UEs, RLE placed anteriorly Gait Assessment Ambulation Assistive Devices Walker, Standard Gait Pattern Ataxic Gait,Step-to Gait Gait Pattern Observed Decreased Stride Length - Left ,Decreased Stride Length - Right,Decreased Weight Shift - Right,No Heel Strike - Left, No Heel Strike - Right Other Gait Observations Step to pattern with LLE, decreased weight shift to RLE 2 Minute Walk Total Distance Walked (feet) 90 2 Minute Walk Gait Speed Score (feet/sec) 0.75 Safety Assessment Factors Affecting Safety Decreased Mobility,Limited Range of Motion,Pain,Surgical
--- NOTE | 2022-04-01 11:06 | PCPTNOTE ---
GLOBE MOUNTER student Mateus Kelley treated and documented on PT under My supervision.
--- NOTE | 2022-04-08 10:49 | PTOPEVAL ---
PHYSICAL THERAPY PROGRESS REPORT. Thank you for referring Thalia Rod to [facility].? The patient is scheduled to be seen for therapy? 2x/week for 4 weeks. Please review, sign, date and return this plan of care DIVINA. I agree with and certify that the following plan of care is medically necessary. Referring Physician Date Attending Provider: Heladio Fox MD Evaluation Information Diagnosis R TKA Onset 03/04/22 Subjective Information Pt states she thinks things Query Text:As Reported By Patient/ are doing really well. She Family states her knee looks better and she can bend it more. She reports continued difficulty with prolonged sitting. She is able to do laundry. Pt states on wednesday her knee got really hot and painful, but ice helped with this. Pain Assessment Right Knee(s) Reported Pain Level 0 Greatest Pain Intensity 6 Lower Extremity Range of Motion Gross Lower Extremity Range of Motion L knee active 0-140 Comments R knee active flexion 89 R knee active extension -10 R knee passive extension -5 R knee passive flexion 92 Lower Extremity Muscle Strength Testing Gross Lower Extremity Strength L hip flexion 4/5 L knee flexion/extension 4/5 R knee lacking 18 deg from terminal knee extension with long arc quad Palpation Assessment Palpation clean and dry, small scaps along 50% of incision, and about 50% of glue still remaining Balance Assessment Time Up Go (TUG) Assistive Devices Walker, Rollator Comments Initially: 44s with WW 04/08/22: 22s with rollator 5 Time Sit to Stand 5 Time Sit to Stand Comments Initailly: 24s With use of UEs Query Text:Normative Data: If Greater , RLE placed anteriorly Than 15 Seconds, 74% Increase Risk for 04/08/22: 15s with use of UEs, Recurrent Falls RLE places anteriorly, 21s without the use of UEs Gait Assessment Ambulation Assistive Devices Walker, Rollator Gait Pattern Observed Decreased Weight Shift - Right Other Gait Observations step through gait pattern, decreased knee flexion on the R during swing phase. 2 Minute Walk Total Distance Walked (feet) 238 2 Minute Walk Gait Speed Score (feet/sec) 1.98 2 Minute Walk Test Comments
--- NOTE | 2022-04-13 12:05 | PCPTNOTE ---
SQUILGEER student Mateus Kelley completed treatment and documentation on Pt under supervision.
--- NOTE | 2022-04-16 12:26 | PCPTNOTE ---
BARREL DRAINER student Mateus Kelley completed treatment and documentation on Pt under supervision.
--- NOTE | 2022-04-23 14:01 | PTOPEVAL ---
PHYSICAL THERAPY PROGRESS REPORT AND DISCHARGE SUMMARY. Thank you for referring Thalia Rod to [facility].? The patient is to be discharged from skilled therapy services at this time. Please review, sign, date and return this plan of care DIVINA. I agree with and certify that the following plan of care is medically necessary. Referring Physician Date Attending Provider: Heladio Fox MD *PT Outpatient Evaluation Start: 03/12/22 Evaluation Information Diagnosis R TKA Onset 03/04/22 Additional Evaluation Detail Pt received from [facility] to complete discharge summary per pt request. Subjective Information Pt states she pain is good Query Text:As Reported By Patient/ during the day, it does get a Family little achy at night bt moving around helps this. She states she has been weaning herself off of using the rollator. She has also decreased the amount of pain medication she is taking. Pain Assessment Right Knee(s) Reported Pain Level 0 Greatest Pain Intensity 4 Lower Extremity Range of Motion Gross Lower Extremity Range of Motion L knee active 0-140 Comments R knee active flexion 98 R knee active extension 0 R knee passive extension 0 R knee passive flexion 102 Lower Extremity Muscle Strength Testing Gross Lower Extremity Strength jeaneth hip flexion 4/5 jeaneth knee flexion/extension 4/5 R knee lacking 8 deg from terminal knee extension with long arc quad Palpation Assessment Palpation mild bruising inferior lateral knee, 1 cm scab along incision line Balance Assessment Timed Up and Go Test (TUG) (Seconds) 22 Comments Initially: 44s with WW 04/08/22: 22s with rollator 04/23/22: 14s with rollator, 17s without AD 5 Time Sit to Stand 5 Time Sit to Stand Comments Initailly: 24s With use of UEs Query Text:Normative Data: If Greater , RLE placed anteriorly Than 15 Seconds, 74% Increase Risk for 04/08/22: 15s with use of UEs, Recurrent Falls RLE places anteriorly, 21s without the use of UEs 04/23/22: 12s without the use of UEs Gait Assessment Ambulation Assistive Devices Walker, Rollator Other Gait Observations step through gait pattern,
== END 2022-04-24 10:49 | disposition home or self-care (01) ==
LOC: ANHPT 11:00
PROVIDERS: PCP Internal Medicine; Visit Provider Orthopaedic Surgery
DX: M17.11 Unilateral primary osteoarthritis, right knee (principal); Z96.651 Presence of right artificial knee joint
CPT/HCPCS: 97014; 97110; 97112; 97116; 97140; 97161; 97530; G0283

== ENCOUNTER → 2022-05-14 10:20 | Outpatient (CLI) | payer OTHER, SELFPAY ==
--- NOTE | ~2022-05-14 | DEXA_ITS ---
Bone Density Report Name: LAURENT FISCHER Age: 77 Sex: Female Ethnicity: White Date of : 1945 Indication: postmenopausal osteoporosis; monitoring treatment; parental hip fracture; height loss; Referring Provider: Zhao, Savannah Naik Study: Bone densitometry was performed. Exam Date: March 27, 2022 Accession number: [id number] Bone Density: Region BMD T-score Z-score Classification AP Spine (L1-L4) 0.793 -2.3 0.1 Osteopenia Femoral Neck (Left) 0.751 -0.9 1.2 Normal Total Hip (Left) 0.714 -1.9 -0.1 Osteopenia Femoral Neck (Right) 0.611 -2.1 -0.1 Osteopenia Total Hip (Right) 0.679 -2.2 -0.4 Osteopenia Total Hip Mean 0.697 -2.1 -0.3 Osteopenia World Health Organization criteria for BMD impression classify patients as: Normal (T-score at or above -1.0), Osteopenia (T-score between -1.0 and -2.5), or Osteoporosis (T-score at or below -2.5). 10-year Fracture Risk: FRAX not reported because: Treated for osteoporosis Previous Exams: Region Exam Age BMD T-score BMD Change BMD Change Date g/cm2 vs Baseline vs Previous AP Spine(L1-L4) 03/27/2022 77 0.793 -2.3 0.060* 0.041* 03/27/2020 74 0.752 -2.7 0.019 0.003 03/27/2017 72 0.748 -2.7 0.016 -0.011 03/27/2015 69 0.759 -2.6 0.026* -0.007 03/27/2013 67 0.766 -2.6 0.033* -0.012 03/27/2011 65 0.778 -2.4 0.045* 0.045* 03/27/2006 60 0.733 -2.9 Total Hip(Left) 05/14/2022 77 0.714 -1.9 0.033 0.005 11/22/2019 74 0.709 -1.9 0.028 -0.003 05/27/2017 72 0.712 -1.9 0.031 0.013 03/28/2015 69 0.699 -2.0 0.018 -0.032* 02/16/2013 67 0.732 -1.7 0.051 0.022 01/16/2011 65 0.710 -1.9 0.029 0.029 12/09/2005 60 0.681 -2.1 Total Hip(Right) 05/14/2022 77 0.679 -2.2 -0.020 -0.030* 11/22/2019 74 0.709 -1.9 0.010 0.036* 05/27/2017 72 0.674 -2.2 -0.025 -0.036* 03/28/2015 69 0.710 -1.9 0.011 0.006 02/16/2013 67 0.704 -2.0 0.005 -0.014 01/16/2011 65 0.718 -1.8 0.019 0.019 12/09/2005 60 0.699 -2.0 *Denotes significance at 95% confidence level, LSC for AP Spine = 0.022 g/cm2, LSC for Total Hip = 0.027 g/cm2 Clinical Information Provided by Patient: Parent has
== END ==
PROVIDERS: PCP Internal Medicine; Visit Provider Internal Medicine
DX: M81.0 Age-related osteoporosis without current pathological fracture (principal); M85.88 Other specified disorders of bone density and structure, other site; M85.852 Other specified disorders of bone density and structure, left thigh; M85.851 Other specified disorders of bone density and structure, right thigh
CPT/HCPCS: 77080

== ENCOUNTER 2024-07-05 08:12 | Outpatient (CLI) | payer MEDICARE, SELFPAY ==
--- NOTE | ~2024-07-05 | DEXA_ITS ---
Bone Density Report Name: LAURENT FISCHER Age: 79 Sex: Female Ethnicity: White Date of : 1945 Indication: postmenopausal; screening for osteoporosis; height loss; rheumatoid arthritis; Referring Provider: UNKNOWN, UNKNOWN Study: Bone densitometry was performed. Exam Date: July 05, 2024 Accession number: [id number] Bone Density: Region BMD T-score Z-score Classification AP Spine(L1-L4) 0.798 -2.3 0.3 Osteopenia Femoral Neck (Right) 0.601 -2.2 -0.1 Osteopenia Total Hip (Right) 0.702 -2.0 -0.1 Osteopenia World Health Organization criteria for BMD impression classify patients as: Normal (T-score at or above -1.0), Osteopenia (T-score between -1.0 and -2.5), or Osteoporosis (T-score at or below -2.5). 10-year Fracture Risk: FRAX not reported because: Treated for osteoporosis Clinical Information Provided by Patient: Has rheumatoid arthritis Is being treated for osteoporosis Has used the following medications: Prolia (i.e. denosumab) Patient maximum height was 64.0 Drinks caffeinated beverages Onset of menses at age 18 Number of children 0 Impression: The patient has low bone mass, based on the Total Spine T-score. Discussion: It is important to ask patients whether they are taking their medications and to encourage continued and appropriate compliance with their osteoporosis therapies to reduce fracture risk. It is also important to review their risk factors and encourage appropriate calcium and vitamin D intakes, exercise, fall prevention and other lifestyle measures. Follow-Up: Consider a repeat BMD and Vertebral Fracture Assessment (VFA) exam in 2 years or sooner if medically necessary, to reassess this patient's status. Reported by: SALVADOR on 07/05/2024 8:43:00 AM. Reviewed, dictated and finalized at location Kerri ELIAS
== END 2024-07-05 08:13 | disposition home or self-care (01) ==
LOC: ANHIMG 08:15
PROVIDERS: PCP Internal Medicine
DX: M85.89 Other specified disorders of bone density and structure, multiple sites (principal); Z96.642 Presence of left artificial hip joint
CPT/HCPCS: 77080